=== PATIENT | female | born 1935 | race Caucasian/White ===

== ENCOUNTER 2025-07-19 11:06 | Inpatient (IN) | payer MEDICARE, OTHER, SELFPAY ==
[2025-07-19] VITALS (7 sets, daily range): BP systolic 139–155; BP diastolic 76–95; PULSE 77–86; RESP 1–18; TEMP 36.3–37.4; O2SAT 91–96; BMI 23.2
--- NOTE | ~2025-07-19 | CT_ITS ---
CTA CHEST CLINICAL HISTORY: covid, cough, sob . COMPARISON: Chest x-ray today TECHNIQUE: Helical CTA performed from thoracic inlet to upper abdomen IV contrast information not listed in PACS Coronal, sagittal reformats. Multiplanar MIPS CT images acquired with automatic exposure control for dose reduction DLP: 237 mGy-cm FINDINGS: Pulmonary arteries: No PE. Thoracic Aorta: No dissection or aneurysm. Atherosclerotic disease. Heart/pericardium: Cardiomegaly. Coronary artery calcifications. RV/LV ratio: Normal. Lungs/Pleura: Bilateral dependent changes. Tiny loculated effusion left side. Tracheobronchial tree: Patent. Nodes: No enlarged nodes. Bones: No acute bony abnormality. Soft tissues: Unremarkable. Visualized upper abdomen: Cholecystectomy. IMPRESSION: 1. No PE. 2. Tiny thin loculated pleural effusion left side. Reviewed, dictated and finalized at location R. AURANT FLOOR MANAGER
--- NOTE | ~2025-07-19 | XR_ITS ---
Examination: XR chest 2V Clinical History: cough, URI Comparison: None Technique: PA and Lateral Findings: Heart size mildly enlarged. Hyperinflation. Left basilar atelectasis and/or scarring. A few calcified granulomata. No acute bony abnormality. Osteopenia. IMPRESSION: 1. Left basilar atelectasis and/or scarring. Pneumonitis not excluded. Reviewed, dictated and finalized at location R. INE CEMENTER
--- NOTE | 2025-07-19 11:31 | ECG_ITS ---
Test Date: 2025-07-19 12:13:19 Measurements Intervals [place] Rate: 90 P: 56 VA: 211 QRS: 42 QRSD: 87 T: 65 QT: 355 QTc: 435 Interpretive Statements SINUS RHYTHM WITH FIRST DEGREE AV BLOCK POSSIBLE LEFT ATRIAL ENLARGEMENT BASELINE ARTIFACT- I, II, III, AVR, AVL, AVF, V1 BORDERLINE ECG No previous ECG available for comparison Electronically Signed On 07-19-2025 12:58:56 PERENNIAL HOUSE MANAGER by Denis Fulton D.O.
[2025-07-19 11:59] LABS: Hematocrit 40.7 % (37.0-47.0); Hemoglobin 13.5 g/dL (12.0-15.0); Immature Granulocyte Percent A 0.3 % (0-0.5); Lymphocytes Absolute Auto 1.11 K/mm3 (0.9-3.2); Mean Corpuscular HGB Conc 33.2 g/dl (32-36); Mean Corpuscular Hemoglobin 29.6 pg (26-34); Mean Corpuscular Volume 89.3 fl (80-100); Nucleated Red Blood Cells Absolute Auto 0.000 K/mm3 (0.0-0.012); Nucleated Red Blood Cells Perc 0.0 % (0.0-0.2); Platelet Count Result 279 k/mm3 (150-375); Red Blood Count 4.56 M/mm3 (4.2-5.4); White Blood Count 9.2 K/mm3 (4.5-10.0)
[2025-07-19 12:11] LABS: Alanine Aminotransferase 32 U/L (6-35); Albumin Level 4.1 g/dL (3.5-5.1); Alkaline Phosphatase 129 U/L (38-126); Anion Gap 7 mmol/L (4-12); Aspartate Amino Transferase 40 U/L (14-36); Bilirubin,Total 0.7 mg/dL (0.2-1.3); Blood Urea Nitrogen 16 mg/dL (7-17); Calcium 9.9 mg/dL (8.4-10.2); Carbon Dioxide 24 mmol/L (22-30); Chloride 106 mmol/L (98-107); Estimated CRCL calculation 36 ml/min; Estimated Glomerular Filt Rate > 60; Glucose 107 mg/dL (65-110); Potassium 4.1 mmol/L (3.4-5.0); Sodium 137 mmol/L (137-145); Total Protein 7.8 g/dL (6.3-8.2)
[2025-07-19 12:12] LABS: Influenza A QL RT-PCR Negative (Negative); Influenza B QL RT-PCR Negative (Negative); RSV RNA, RT-PCR Negative (Negative); SARS-CoV-2 RNA PCR Positive (Negative)
[2025-07-19 12:15] LABS: INR 1.0; Prothrombin Time 13.5 Seconds (11.1-14.7)
[2025-07-19 12:16] LABS: Partial Thromboplastin Time 27.4 Seconds (22.3-36.8)
--- NOTE | 2025-07-19 12:20 | ED.URI ---
HPI - URI/Sore Throat General Chief Complaint: Upper Respiratory Infection <SHERLY Pack Last Filed: 07/19/25 15:05> Stated Complaint: URI symptoms x 3 days <SHERLY Pack Last Filed: 07/19/25 15:05> Time Seen by Provider: 07/19/25 11:31 <SHERLY Pack Last Filed: 07/19/25 15:05> Source: patient <SHERLY Pack Last Filed: 07/19/25 15:05> Mode of arrival: EMS <SHERLY Pack Last Filed: 07/19/25 15:05> Limitations: no limitations <SHERLY Pack Last Filed: 07/19/25 15:05> History of Present Illness HPI Narrative: Patient is a 9-year-old female, past medical history of HLD, HTN, who presents the ED via EMS with report of cough/URI symptoms. Patient is resident of [facility] living [facility]. at bedside assisted in providing information. Reports patient has had a dry cough for the past 3-4 days. Has been worsening. Denies production of sputum. Denies congestion/sore throat, fevers, CP, significant SOB. <SHERLY Pack Last Filed: 07/19/25 15:05> Related Data Home Medications: Home Medications ?Medication ?Instructions ?Recorded ?Confirmed ?Last Taken ?Type amlodipine 5 mg-benazepril 20 mg 1 cap PO DAILY 07/19/25 07/19/25 07/18/25 History capsule atorvastatin 20 mg tablet 20 mg PO QPM 07/19/25 07/19/25 07/17/25 History <SHERLY Pack Last Filed: 07/19/25 15:05> Allergies/Adverse Reactions: Allergies Allergy/AdvReac Type Severity Reaction Status Date / Time Penicillins Allergy Unknown Unknown Verified 07/19/25 16:39 <SHERLY Pack Last Filed: 07/19/25 15:05> Review of Systems Review of Systems: All systems reviewed & are unremarkable except as noted in HPI. <Klaudia Brown PA-C - Last Filed: 07/19/25 15:05> All systems reviewed & are unremarkable except as noted in HPI and below <Klaudia Brown PA-C - Last Filed: 07/19/25 15:05> [facility] Past Medical History Medical History: Medical History (Updated 07/19/25 @ 18:07 by Suzan Arcos APRN) Hypertension Hyperlipidemia <Klaudia Brown PA-C - Last Filed: 07/19/25 15:05> Social History Social History: Social History Smoking status: Never smoker Alcohol intake: never Substance use: never Substance use type: does not use Lack of Transportation: No Lack of Food: Never True Current Housing: I Have Housing Concerned About Future Housing: No Difficulty Paying Gas/Electric Bills: No Difficulty Paying for Meds: No Currently Unemployed: No Education: Associate Degree Difficulty w/ Childcare or Family Care: No Spiritual care concerns: No <Klaudia Brown PA-C - Last Filed: 07/19/25 15:05> Exam Narrative: GENERAL: Elderly, frail, mildly ill appearing, non-toxic, in no acute distress. HEAD: Normocephalic, atraumatic. ENT: Dry MMs RESPIRATORY: Airway patent, respirations nonlabored. Frequent coughing on exam. Slight rhonchi in bases [place]. No wheezing. No significant distress. CARDIOVASCULAR: Regular rate and rhythm without murmurs, rubs, or gallops. Peripheral pulses intact MUSCULOSKELETAL: Moves all extremities. No gross deformities. No peripheral edema. SKIN: Warm, dry, normal color. NEURO: A&O X3. Speech clear. Cranial nerves II-XII grossly intact. Steady gait. No ataxic movements. PSYCHIATRIC: Appropriate mood and affect. Normal interaction. <Klaudia Brown PA-C - Last Filed: 07/19/25 15:05> Course QUEEN'S COUNSEL/PA Physician Supervision This visit was performed by both a physician and an Advanced Practice Provider. I performed all aspects of the Medical Decision Making as documented. <DO Farhana Rodriguez Filed: 07/19/25 21:16> Vital Signs Vital signs: Vital Signs Temperature 98.4 F 07/19/25 11:05 Pulse Rate 86 07/19/25 11:05 Respiratory Rate 15 07/19/25 11:05 Blood Pressure 139/95 H 07/19/25 11:05 Pulse Oximetry 94 07/19/25 11:05 Oxygen Delivery Room Air 07/19/25 11:05 Temperature 99.4 F 07/19/25 19:44 Pulse Rate 84 07/19/25 19:44 Respiratory Rate 18 07/19/25 19:44 Blood Pressure 139/76 07/19/25 19:44 Pulse Oximetry 91 07/19/25 19:44 Oxygen Delivery Room Air 07/19/25 16:51 <Klaudia Brown PA-C - Last Filed: 07/19/25 15:05> Vital Signs Temperature 98.4 F 07/19/25 11:05 Pulse Rate 86 07/19/25 11:05 Respiratory Rate 15 07/19/25 11:05 Blood Pressure 139/95 H 07/19/25 11:05 Pulse Oximetry 94 07/19/25 11:05 Oxygen Delivery Room Air 07/19/25 11:05 Temperature 99.4 F 07/19/25 19:44 Pulse Rate 84 07/19/25 19:44 Respiratory Rate 18 07/19/25 19:44 Blood Pressure 139/76 07/19/25 19:44 Pulse Oximetry 91 07/19/25 19:44 Oxygen Delivery Room Air 07/19/25 16:51 <Lencho Campos DO - Last Filed: 07/19/25 21:16> [facility] MDM Narrative Medical decision making narrative: Patient presented to ED with several day history of cough/URI symptoms. From local assisted living facility. Vital signs are stable upon arrival. Patient is afebrile here. Oxygen around 94% on RA. Cbc without leukocytosis or anemia. CMP is unremarkable. Stable electrolytes. Lactic acid within normal range. Patient tested positive for COVID-19. Consistent with clinical picture. EKG without concerning ischemic changes. Chest x-ray with left lower lobe atelectasis versus scarring, possible pneumonitis. CTA of chest was obtained and w/o evidence of PE, does show tiny loculated pleural effusion. Patient was ambulated throughout the ED and oxygen dropped to upper 70s - 84% on RA. Patient does not have any previous oxygen requirement. She does not require oxygen while at rest, but will admit for further evaluation of supportive therapy for COVID given acute hypoxia. Discussed case with Suzan LLANOS hospitalist, accepted patient for admission. Hospitalist to make determination for steroid treatment. Patient and family are in agreement with plan and need for admission. <Klaudia Brown PA-C - Last Filed: 07/19/25 15:05> Differential Diagnosis Differential Diagnosis: covid, influenza, viral syndrome, URI, PNA, electrolyte derangement <SHERLY Pack Last Filed: 07/19/25 15:05> Medical Records I have reviewed the following patient records and this information was taken into consideration when formulating the assessment and plan.: previous labs, previous ER visits, previous hospitalizations and previous clinic visits <SHERLY Pack Last Filed: 07/19/25 15:05> Lab Data MDM Lab Attestation statement: I personally reviewed the patient's lab results. <Klaudia Brown PA-C - Last Filed: 07/19/25 15:05> Result diagrams: 07/19/25 11:54 07/19/25 11:54 <Klaudia Brown PA-C - Last Filed: 07/19/25 15:05> Labs: Lab Results 07/19/25 07/19/25 Range/Units 11:24 11:54 WBC 9.2 (4.5-10.0) K/mm3 RBC 4.56 (4.2-5.4) M/mm3 Hgb 13.5 (12.0-15.0) g/dL Hct 40.7 (37.0-47.0) % MCV 89.3 (80-100) fl MCH 29.6 (26-34) pg MCHC 33.2 (32-36) g/dl RDW 13.3 (11.5-14.5) % Plt Count 279 (150-375) k/mm3 MPV 8.8 (7.4-10.4) fl Immature Gran % (Auto) 0.3 (0-0.5) % Neut % (Auto) 76.6 H (45.5-73.1) % Lymph % (Auto) 12.1 L (18.3-44.2) % Sac % (Auto) 10.1 H (2.6-8.5) % Eos % (Auto) 0.5 (0-4.4) % Baso % (Auto) 0.4 (0.2-1.2) % Lymph # (Auto) 1.11 (0.9-3.2) K/mm3 Sac # (Auto) 0.9 H (0.1-0.6) K/mm3 Eos # (Auto) 0.1 (0-0.3) K/mm3 Baso # (Auto) 0.0 (0.0-0.1) K/mm3 Abs Immat Gran (auto) 0.03 (0.00-0.031) K/mm3 Absolute Neuts (auto) 7.0 H (1.3-6.7) K/mm3 Absolute Nucleated RBC 0.000 (0.0-0.012) K/mm3 Nucleated RBC % 0.0 (0.0-0.2) % PT 13.5 (11.1-14.7) Seconds INR 1.0 APTT 27.4 (22.3-36.8) Seconds Sodium 137 (137-145) mmol/L Potassium 4.1 (3.4-5.0) mmol/L Chloride 106 (98-107) mmol/L Carbon Dioxide 24 (22-30) mmol/L Anion Gap 7 (4-12) mmol/L BUN 16 (7-17) mg/dL Creatinine 0.75 (0.7-1.0) mg/dL Estim Creat Clear Calc 36 ml/min Estimated GFR > 60 (59 - ) Glucose 107 (65-110) mg/dL Lactic Acid 1.0 (0.7-2.0) mmol/L Calcium 9.9 (8.4-10.2) mg/dL Total Bilirubin 0.7 (0.2-1.3) mg/dL AST 40 H (14-36) U/L ALT 32 (6-35) U/L Alkaline Phosphatase 129 H (38-126) U/L Total Protein 7.8 (6.3-8.2) g/dL Albumin 4.1 (3.5-5.1) g/dL Influenza A (RT-PCR) Negative (Negative) Influenza B (RT-PCR) Negative (Negative) RSV (RT-PCR) Negative (Negative) SARS-CoV-2 RNA (RT-PCR) Positive A (Negative) <Klaudia Brown PA-C - Last Filed: 07/19/25 15:05> Lab Results 07/19/25 07/19/25 Range/Units 11:24 11:54 WBC 9.2 (4.5-10.0) K/mm3 RBC 4.56 (4.2-5.4) M/mm3 Hgb 13.5 (12.0-15.0) g/dL Hct 40.7 (37.0-47.0) % MCV 89.3 (80-100) fl MCH 29.6 (26-34) pg MCHC 33.2 (32-36) g/dl RDW 13.3 (11.5-14.5) % Plt Count 279 (150-375) k/mm3 MPV 8.8 (7.4-10.4) fl Immature Gran % (Auto) 0.3 (0-0.5) % Neut % (Auto) 76.6 H (45.5-73.1) % Lymph % (Auto) 12.1 L (18.3-44.2) % Sac % (Auto) 10.1 H (2.6-8.5) % Eos % (Auto) 0.5 (0-4.4) % Baso % (Auto) 0.4 (0.2-1.2) % Lymph # (Auto) 1.11 (0.9-3.2) K/mm3 Sac # (Auto) 0.9 H (0.1-0.6) K/mm3 Eos # (Auto) 0.1 (0-0.3) K/mm3 Baso # (Auto) 0.0 (0.0-0.1) K/mm3 Abs Immat Gran (auto) 0.03 (0.00-0.031) K/mm3 Absolute Neuts (auto) 7.0 H (1.3-6.7) K/mm3 Absolute Nucleated RBC 0.000 (0.0-0.012) K/mm3 Nucleated RBC % 0.0 (0.0-0.2) % PT 13.5 (11.1-14.7) Seconds INR 1.0 APTT 27.4 (22.3-36.8) Seconds Sodium 137 (137-145) mmol/L Potassium 4.1 (3.4-5.0) mmol/L Chloride 106 (98-107) mmol/L Carbon Dioxide 24 (22-30) mmol/L Anion Gap 7 (4-12) mmol/L BUN 16 (7-17) mg/dL Creatinine 0.75 (0.7-1.0) mg/dL Estim Creat Clear Calc 36 ml/min Estimated GFR > 60 (59 - ) Glucose 107 (65-110) mg/dL Lactic Acid 1.0 (0.7-2.0) mmol/L Calcium 9.9 (8.4-10.2) mg/dL Total Bilirubin 0.7 (0.2-1.3) mg/dL AST 40 H (14-36) U/L ALT 32 (6-35) U/L Alkaline Phosphatase 129 H (38-126) U/L Total Protein 7.8 (6.3-8.2) g/dL Albumin 4.1 (3.5-5.1) g/dL Influenza A (RT-PCR) Negative (Negative) Influenza B (RT-PCR) Negative (Negative) RSV (RT-PCR) Negative (Negative) SARS-CoV-2 RNA (RT-PCR) Positive A (Negative) <Lencho Campos DO - Last Filed: 07/19/25 21:16> Imaging Data Attestation: I personally reviewed and interpreted this imaging study as follows: <Klaudia Brown PA-C - Last Filed: 07/19/25 15:05> Radiologist's impression: ITS Impressions Chest X-Ray 07/19/25 12:38 IMPRESSION: 1. Left basilar atelectasis and/or scarring. Pneumonitis not excluded. Chest CTA 07/19/25 13:06 IMPRESSION: 1. No PE. 2. Tiny thin loculated pleural effusion left side. <Klaudia Brown PA-C - Last Filed: 07/19/25 15:05> ITS Impressions Chest X-Ray 07/19/25 12:38 IMPRESSION: 1. Left basilar atelectasis and/or scarring. Pneumonitis not excluded. Chest CTA 07/19/25 13:06 IMPRESSION: 1. No PE. 2. Tiny thin loculated pleural effusion left side. <Lencho Campos DO - Last Filed: 07/19/25 21:16> ECG Data EKG #1: Attestation: I personally reviewed and interpreted this ECG as follows: <Klaudia Brown PA-C - Last Filed: 07/19/25 15:05> ECG completion date: 07/19/25 <Klaudia Brown PA-C - Last Filed: 07/19/25 15:05> ECG completion time: 12:13 <SHERLY Pack Last Filed: 07/19/25 15:05> normal rate (90), sinus rhythm (first degree av block) and no ST changes <Klaudia Brown PA-C - Last Filed: 07/19/25 15:05> Discharge Plan Discharge Clinical Impression: COVID-19, Acute hypoxic respiratory failure <SHERLY Pack Last Filed: 07/19/25 15:05> Patient Disposition: Still a Patient <SHERLY Pack Last Filed: 07/19/25 15:05> Condition: Stable <SHERLY Pack Last Filed: 07/19/25 15:05>
--- OUTSIDE RECORDS SUMMARY | 2025-07-19 12:43 | XMS_ITS | Clinical Summary ---
Author Organization [facility] Address [address] [place] [address] Care Team Providers Care Micro Computer Data Processor Name Role Phone Aston Walker MD Primary Care Provider Allergies Active Allergy Reactions Criticality Noted Date Comments Penicillins Hypotension,Rash,Deanna phylaxis,Anxiety,O ther (See Comments),Palpitations,Shortness of Breath/Wheezing High 02/09/1985 Medications multivitamin (DAILY-JD) tablet Take 1 Tab by mouth every other day. Active atorvastatin (LIPITOR) 20 mg tabletIndication s:Stage 3a chronic kidney disease (CMS/HCC),Essent ial hypertension, benign,History of CVA (cerebrovascular accident),Mixed hyperlipidemia TAKE 1 TABLET BY MOUTH EVERY DAY 100 Tablet 3 025 Active acetaminophen (TYLENOL) 325 mg tablet Take 2 Tablets (650 mg) by mouth every 6 hours as needed for Other (See Comment) (See admin instructions). 025 Active amLODIPine-benaz epril (LOTREL) 5-20 mg capsuleIndicatio ns:Stage 3a chronic kidney disease (CMS/HCC),Essent ial hypertension, benign,History of CVA (cerebrovascular accident),Mixed hyperlipidemia TAKE 1 CAPSULE BY MOUTH EVERY DAY 100 Capsule 3 025 Active aspirin (ECOTRIN EC) 81 mg Tablet, Delayed Release (E.C.) Take 81 mg by mouth daily. 06/21 Discontinued colchicine (COLCRYS) 0.6 mg tabletIndication s:Chondrocalcino sis Take 2 tablets (1.2mg) for one day, then continue with 0.6mg daily 15 Tablet 023 06/21 Discontinued Saccharomyces boulardii (FLORASTOR) 250 mg Capsule Take 1 Capsule (250 mg) by mouth 2 times daily. 60 Capsule 5 12/02/19 25 1:59 PM CDT 025 06/21 Discontinued polyethylene glycol 3350 (MIRALAX) 17 gram/dose Powder Starting 12/02: Dissolve 1 capful (17 Grams) in 8 ounces of fluid and drink by mouth once daily. 510 Gram 5 12/02/19 25 1:59 PM CDT 025 06/21 Discontinued hydrocortisone acetate (ANUSOL-HC) 25 mg Suppository Insert 1 Suppository (25 mg) by rectum every 12 hours. 60 Suppository 5 12/02/19 25 1:59 PM CDT 025 06/21 Discontinued docusate sodium (COLACE) 100 mg capsule Take 1 Capsule (100 mg) by mouth 2 times daily as needed for Constipation. 60 Capsule 5 12/02/19 25 1:59 PM CDT 025 06/21 Discontinued conjugated estrogens (PREMARIN) 0.625 mg/gram vaginal cream Starting on 12/02: Insert 1 Gram vaginally every Saturday, Saturday, and Saturday. 30 Gram 5 12/02/19 25 1:59 PM CDT 025 06/21 Discontinued nitrofurantoin (Macrobid) 100 mg capsuleIndicatio ns:UTI symptoms Take 1 Capsule (100 mg) by mouth 2 times daily. 10 Capsule 025 06/21 Discontinued respiratory syncytial virus, pref A and B, PF, (Abrysvo, PF,) 120 mcg/0.5 mL Recon SolnIndications: Need for RSV immunization Inject 0.5 mL (120 mcg) by intramuscular injection one time only for 1 dose. 0.5 mL 025 06/21 Active Problems Patient Care Coordination No te Formatting of this note migh t be different from the original. Dress Designer--Dr. Neetu Castrejon Problem Noted Date Diagnosed Date Prediabetes 12/07/2024 Protein-calorie malnutrition, severe 11/29/2024 Rectal prolapse 11/28/2024 Blood per rectum 11/27/2024 Dementia 11/17/2024 Stage 3a chronic kidney disease 08/04/2020 Allergic rhinitis due to pollen 11/15/2015 GERD (gastroesophageal reflux disease) 2 MVP (mitral valve prolapse) 11/01/2009 Essential hypertension, benign 01/28/2007 History of CVA (cerebrovascular accident) 2006 Resolved Problems Problem Noted Date Diagnosed Date Resolved Date Pruritus 12/10/2017 11/28/2024 Cough 06/07/2017 08/04/2020 Urinary frequency 02/12/2017 11/28/2024 Vertigo 09/26/2016 08/04/2020 Right knee pain 03/12/2014 11/28/2024 Varicose vein 03/12/2014 11/28/2024 Knee injury 09/11/2013 11/28/2024 Change in bowel function 04/16/201309/2024 Abnormal glucose 09/21/2011 11/28/2024 Foot pain 09/15/2010 11/28/2024 Breast pain 09/13/2009 11/28/2024 Insomnia 09/13/2009 08/04/2020 Rib pain 07/26/2009 11/28/2024 [facility]ine [facility] 03/15/2009 08/04/2020 Sprain and strain of other s pecified sites of knee and leg 01/28/2007 07/14/2008 Routine general medical exam ination at a health care facility 01/28/2007 07/14/2008 Encounters Date Type Department Care Team Description 06/21/2025 11:00 AM EXPERIMENTAL WELDER Office Visit [facility] - [address] [place] [id number] Aston Walker MD Stage 3a chronic kidney disease (CMS/HCC) (Primary Dx); Frail elderly; History of CVA (cerebrovascular accident); Moderate late onset Alzheimer's dementia without behavioral disturbance, psychotic disturbance, mood disturbance, or anxiety (CMS/HCC); Mixed hyperlipidemia; Prediabetes; Need for RSV immunization 06/15/2025 External Device Data STL ABSTRACTION Provider, Abstract 06/11/2025 [facility] [address] [place] [phone] Aston Walker MD Labs Only 05/28/2025 [facility] [address] [place] [address] Aston Walker MD needs letter 05/13/2025 [facility] [address] [place] [address] Aston Walker MD Labs Only 04/22/2025 [facility] [address] [place] [address] Aston Walker MD Paperwork 04/20/2025 External Device Data STL ABSTRACTION Provider, Abstract 04/20/2025 [facility] [address] [place] [phone] Aston Walker MD Paperwork 04/19/2025 [facility] [address] [facility] [address] [place] [address] Aston Walker MD Provider Call from Last 3 Months Immunizations Immunization Administration Dates Next Due (Moderna Bivalent)(6 Mos Up) COVID-19 Vaccine - Emergency Use Authorization, MRNA(Pf) 50 Mcg/0.5 Ml Im Susp 05/17/2025 (PFIZER KAREN)(12 YR UP PRIMA RY SERIES) COVID-19 VACCINE - EMERGENCY USE AUTHORIZATION, MRNA, KAREN(PF) 30 MCG/0.3 ML IM SUSP 02/16/2022 (PFIZER)(12 YR UP) COVID-19 VACCINE - EMERGENCY USE AUTHORIZATION, MRNA, [id number](PF) 30 MCG/0.3 ML IM SUSP 05/05/2021,10/06/2020,09/14/2020 (PNEUMOVAX 23)(50 YRS UP) PN EUMOCOCCAL POLYSACCHARIDE (PPV23) 0.5 ML, IM 07/29/2004 (PREVNAR 20)(6 WKS UP) PNEUM OCOCCAL CONJUGATE VACCINE 20-VALENT (PCV20), POLYSACCHARIDE [id number] CONJUGATE, ADJUVANT 0.5 ML (PF) IM 04/23/2022 (Pfizer Bivalent)(12 Yr Up) COVID-19 Vaccine - Emergency Use Authorization, MRNA, Lnp-S(Pf) 30 Mcg/0.3 Ml Susp 05/11/2022 INFLUENZA VACCINE HIGH DOSE QUADRIVALENT 65 YR UP PF IM 05/17/2025,04/18/2023,04/23/2022,05/09,04/01/2020 INFLUENZA VACCINE QUADRIVALE NT ADJ 65 YR UP PF IM 05/09/2021 Influenza Seasonal Unspecifi ed Formulation IM 03/29/2023,05/21/2018 Influenza Vaccine High Dose 65+ Yrs IM 9,05/21/2018 Pneumococcal Polysaccharide Vacc 23-odell IM SCHIP 03/23/2004 Zoster Vaccine Live SQ 02/18/2015 Family History Medical History Relation Name Comments Healthy Father Raundle Heart Attack Father Raundle Healthy Mother Charlotte Relation Name Status Comments Father Raundle Mother Charlotte Alive Social History Tobacco Use Types Packs/Day Years Used Date Smoking Tobacco: Never Smokeless Tobacco: Never Tobacco Cessation:Counseling Given: No Alcohol Use Standard Drinks/Week Comments No 0 (1 standard drink = 0.6 oz pur e alcohol) Social Connections Answer Date Recorded In a typical week, how many times do you talk on the phone with family, friends, or neighbors? More than three times a week 08/04/2020 How often do you get togethe r with friends or relatives? Once a week 08/04/2020 How often do you attend chur PinMyPet or uatsdin services? More than 4 times per year 08/04/2020 Do you belong to any clubs o r organizations such as evangelical groups, unions, fraternal or athletic groups, or school groups? No 08/04/2020 How often do you attend meet ings of the clubs or organizations you belong to? Never 08/04/2020 Are you , , di vorced, , never , or living with a partner? 08/04/2020 Financial Resource Strain Answer Date R ecorded How hard is it for you to pa y for the very basics like food, housing, medical care, and heating? Not hard at all 10/19/2021 Food Insecurity Answer Date Recorded In the past 12 months, have you worried that your food would run out before you had money to buy more? Never true 10/19/2021 In the past 12 months, did y ou run out of food and didn't have money to buy more? Never true 10/19/2021 Transportation Needs Answer Date Record ed In the past 12 months, has l ack of transportation kept you from medical appointments or from getting medications? No 10/19/2021 Lack of Transportation (Non-Medical) Not on file 10/19/2021 Feeling Safe Answer Date Recorded Are you in a relationship wi th someone who hurts you emotionally and/or physically? No 01/01/2025 Food Insecurity Answer Date Recorded Patient needs follow up regardin 11/28/2024 Transportation Needs Answer Date Record ed Patient needs follow up regardin 11/28/2024 Utility Needs Answer Date Recorded Patient needs follow up regardin 11/28/2024 Comments No Sex and Gender Information Value Date Recorded Sex Assigned at Not on file Legal Sex Female 4:57 AM EXPERIMENTAL WELDER Gender Identity Not on file Sexual Orientation Not on file Last Filed Vital Signs Vital Sign Reading Time Taken Comments Blood Pressure 120/86 06/21/2025 10:31 AM EXPERIMENTAL WELDER Pulse 70 06/21/2025 10:31 AM EXPERIMENTAL WELDER Temperature 36.5 C (97.7 F) 06/21/2025 10:31 AM EXPERIMENTAL WELDER Respiratory Rate 16 06/21/2025 10:3 1 AM EXPERIMENTAL WELDER Oxygen Saturation 95% 06/21/2025 10: 31 AM EXPERIMENTAL WELDER Inhaled Oxygen Concentration - - Weight 58.4 kg (128 lb 12.8 oz) 025 10:31 AM EXPERIMENTAL WELDER Height 157.5 cm (5' 2) 06/21/2025 10:3 1 AM EXPERIMENTAL WELDER Body Mass Index 23.56 06/21/2025 10:31 AM EXPERIMENTAL WELDER Plan of Treatment Upcoming Encounters Date Type Department Care Team (Late st Contact Info) Description 12/09/2025 2:30 PM CDT Office Visit [facility] - [address] [place] [phone] Aston Walker MD [address] [place] [address] 05/27/2088 Abstract [facility] - [facility] [address] [place] [address] Josr Velazquez MD [address] [facility] [address] [address] Health Maintenance Due Date Last Done Comments DTAP/TDAP/TD VACCINES (1 - Tdap) 1954 OSTEOPOROSIS SCREENING 07/14/2008 3 (Previously completed) RSV VACCINE (60+ or ) (1 - 1-dose 75+ series) 2012 ZOSTER VACCINE (2 of 3) 04/15/2015 02/18/2015 COVID-19 Vaccine (2024-2 6 season) 2025 05/17/2025, 04/18/2023, 05/11/2022, Additional history exists PNEUMOCOCCAL VACCINE 50+ YEARS Completed 0 04/23/2022, 07/29/2004, 03/23/2004 INFLUENZA VACCINE Completed 05/17/2025, , 03/29/2023, Additional history exists Additional Health Concerns Infection Onset Date 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 12/07/2022 Insurance MEDICARE PART A AND B [facility] [place] [address] RX [employer] Medicare Part D RX [employer] (INTERNAL) [facility] Advance Directives For more information, please contact: [phone] Documents on File Type Date Recorded 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 intubation): No Mechanical Ventilation (for respiratory distress) - Non-Invasive (i.e. BiPAP, CPAP): Yes * NO CPR (In Event of Cardiopulmonary Arrest) Date Activated Date Inactivated Comments 12/07/2024 11:41 AM 01/01/2025 5:40 PM Question Answer Comments Mechanical Ventilation (for respiratory distress) - Invasive (i.e. intubation): No Mechanical Ventilation (for respiratory distress) - Non-Invasive (i.e. BiPAP, CPAP): Yes * Full Code Date Activated Date Inactivated Comments 11/27/2024 9:36 PM 12/02/2024 7:18 PM * Full Code Date Activated Date Inactivated Comments 01/15/2024 3:27 PM 11/27/2024 3:01 PM Care Teams Micro Computer Data Processor Relationship Specialty Start Date End Date Aston Walker MD [address] [place] [address]. [address] [place] [address] PCP - General Internal Medicine 04/01/20
--- OUTSIDE RECORDS SUMMARY | 2025-07-19 12:43 | XMS_ITS | Encounter Summary ---
Author Organization [facility] Address [address] [place] [address] Care Team Providers Care Inspector Production Plastic Parts Name Role Phone Aston Walker MD Primary Care Provider Encounter Details Date Type Department Care Team (Late st Contact Info) Description 01/28/2007 Orders Only [facility] Primary Care - [address] [place] [address] Josr Velazquez MD [address] [facility] [address] [address] Social History Tobacco Use Types Packs/Day Years Used Date Smoking Tobacco: Never Assessed Comments Unknown Sex and Gender Information Value Date Recorded Sex Assigned at Not on file Legal Sex 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 TOBACCO USE Patient does not currently use tobacco. MEDICATIONS: Medication list current. pt also taking calcium and a multi vitamin CHIEF COMPLAINT Seen as a new patient to get established with the practice. Seen for a preventive examination. pt seeing dr graves for left leg 4 wks ago HISTORY: Mrs. Ordonez comes in as a new patient today. She is a healthy 71 year- old white female whocomes in for establishment. She has been having some left pain. She has been seeing her friend Dr. 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 In the office today she is hobbling on crutches and having greatamounts of difficulty just bearing weight on the left leg without significant pain. She denies any acute trauma. Dr. Graves recommended she use Celebrex but she read the potential side effects and decided not to fill the prescription. Otherwise her history is remarkable for occasional migraines. She does have some swelling of the foot on the site of her left knee pain and I described to her that is probably just dependant edema. ROS: no other GI, symptoms PAST MEDICAL HISTORY: Hypertension. Migraines. 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 She still describes some left sided sensory deficits. Past surgical history: Hysterectomy, bunionectomy, cholecystectomy, pelvic floor surgery for bladder incontinence. FAMILY HISTORY: noncontributory SOCIAL HISTORY: The patient lives with her . She remains physically active and does a lot ofgymnastics. She is a Non-smoker, non-drinker. She wears her seatbelt regularly. PHYSICAL EXAMINATION: This is a pleasant, healthy appearing 71 year-old white female in no acute distress. She is having quite a bit of difficulty with pain in the left knee and there is mild swelling and fullness and fullness in the popliteal fossae. There are good peripheral pulses. CONSTITUTIONAL: GENERAL APPEARANCE: Healthy appearing patient in no distress. NECK/THYROID: Trachea midline. No thyroid enlargement, tenderness, or mass. No supraclavicular or cervical adenopathy. RESPIRATORY: Clear to auscultation and percussion. Normal respiratory effort. CARDIOVASCULAR: CARDIAC: Regular rhythm. No murmurs, rubs, or gallops. ARTERIAL: No aortic bruits. EDEMA/VARICOSITIES OF EXTREMITIES: No edema or varicosities. GASTROINTESTINAL: ABDOMEN: Soft, non-tender, without masses. Bowel sounds active. LIVER/SPLEEN/KIDNEY: No hepatosplenomegaly, tenderness or nodularity. Kidneys not palpable. 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 Ordonez to take the celebrex. I think it is a safe and worthwhile choice thing to try to improve her pain. If she does not have a good response she needs to f/u with ortho and consider surgery. 401.1-HYPERTENSION ESSENTIAL BENIGN ASSESSMENT: The patient will continue on her same medications. We will adjust prn. 434.91-CVA/STROKE ASSESSMENT: She has made a pretty full recovery although she still complains of having sensory deficit on the left side of her body. She doesn't have any obvious neurological deficits.The patient will call for problems but return at least every 6 months. Will check screening labs today. I encouraged her to continue working on the orthopedic problem as she definitely needs some resolution on that. V70.0-ROUTINE GENERAL MEDICAL EXAMINATION ASSESSMENT: The patient is doing well and no distinct problems were identified on exam. LAB ORDERS: Order number: [id number] Test Ordered: CBC W/ DIFFERENTIAL 3150 Order number: [id number] Test Ordered: COMPREHENSIVE METABOLIC PANEL & GFR 1112 Order number: [id number] Test Ordered: LIPID PANEL 1078 Order number: [id number] Test Ordered: TSH 1720 Order number: [id number] Test Ordered: URINALYSIS WITH REFLEX CULTURE 2221 Order number: [id number] Test Ordered: EKG W/ INTERPRETATION AND REPORT [id number] HEALTH MAINTENANCE: LAST BREAST EXAM DATE: 2005. LAST PAP DATE: 2005. PAP SMEAR PROVIDER: dieudonne. PAP SMEAR PROVIDER: dieudonne. ( pt had a hist in 1984) LAST DATE PELVIC EXAM: 2005. LAST MAMMOGRAM DATE: 01-31. LAST DATE HORMONE REPLACE DISCUSSED: neg. DISCUSSED SMOKING: neg. LAST TD: neg SEXUAL ACTIVITY DISCUSSED: pos. SUBSTANCE ABUSE DISCUSSED: neg. INJURY PREVENTION DISCUSSED: pos. DIET AND EXERCISE DISCUSSED: pos. ADVANCED DIRECTIVES DISCUSSED: neg. LAST DATE COLONOSCOPY: 2000. LAST DATE FOBT: neg. LAST BONE DENSITY DATE: 2002?. DIABETIC EYE EXAM: na. DIABETIC FOOT EXAM: na LAST FLU VACCINE:neg LAST PNEUMOCOCCAL:2004 PREVENTIVE COUNSELING The patient was counseled regarding screening procedures and recommended schedule for mammography, GI hemoccult testing, colonoscopy, cholesterol, thyroid and diabetes screening. RETURN VISIT : Patient instructed to return in 6 months.sooner if needed Electronically Signed by: Josr Velazquez MD on Sunday, February 04, 2007 documented in this encounter Plan of Treatment Upcoming Encounters Date Type Department Care Team (Late st Contact Info) Description 12/09/2025 2:30 PM CDT Office Visit [facility] [address] [facility] [address] [place] [address] Aston Walker MD 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 [place] [address] PCP - General Internal Medicine 04/01/20 documented as of this encounter
--- OUTSIDE RECORDS SUMMARY | 2025-07-19 12:43 | XMS_ITS | Encounter Summary ---
Author Organization [facility] Address [address] [place] [address] Care Team Providers Care Product Managent Intern Name Role Phone Aston Walker MD Primary Care Provider Reason for Visit * Reason Comments needs letter Encounter Details Date Type Department Care Team (Late st Contact Info) Description 05/28/[address] [facility] Primary Care - [address] [place] [address] Aston Walker MD [address] [place] [address]. [address] [place] [address] needs letter Social History Tobacco Use Types Packs/Day Years Used Date Smoking Tobacco: Never Smokeless Tobacco: Never Alcohol Use Standard Drinks/Week Comments No 0 [...] week 08/04/2020 [facility] services? 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 Topic: CPA Information Request - Billing >> May 28, 2025 10:39 AM Trish Trivedi wrote: Caller Name: Bennett on PHI Callback Number: Telephone Information: SEE TE 04/13/25 Call Notes: Caller requires a call back to discuss Patient is calling again about a bill from [facility] test. States patient never and a TB test done Patient has contacted [facility] about the bill and was advised that they need a letter from Dr. Jace Walker that states he never ordered this test. Patient states was told this was going to be straightened out several times and he got another bill from them. Name on dee price is $384.77 Bill # [id number] Caller is requesting information about: Coding documented in this encounter Plan of Treatment Upcoming Encounters Date Type Department Care Team (Late st Contact Info) Description 12/09/2025 2:30 PM CDT Office Visit [facility] [address] [place] [address] Aston Walker MD 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 [place] [address] PCP - General Internal Medicine 04/01/20 documented as of this encounter
--- OUTSIDE RECORDS SUMMARY | 2025-07-19 12:43 | XMS_ITS | Encounter Summary ---
Author Organization [facility] Address [address] [place] [address] Care Team Providers Care Dialysis Registered Nurse Name Role Phone Aston Walker MD Primary Care Provider Reason for Visit * Reason Comments Labs Only Encounter Details Date Type Department Care Team (Late st Contact Info) Description 05/13/2025 Telephone [facility] Primary Care - [address] [place] [address] Aston Walker MD [address] [place] [address]. [address] [place] [address] Labs Only Social History Tobacco Use Types Packs/Day Years [...] week 08/04/2020 How often do you attend [facility] or islam services? 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 * Telephone Encounter - Adilene Pleitez - 05/13/2025 11:10 AM CDT Copied from [facility] #[id number]. Topic: CPA Information Request - Billing >> May 13, 2025 11:05 AM Adilene Trivedi wrote: Caller Name: Bennett Ordonez Callback Number: Telephone Information: Call Notes: Bennett is calling in regards to a TB Test for the patient that he is being billed $384.77 for, Bennett is stating that the TB test was not ordered by Dr. Walker for the patient and that he is needing a letter from Dr. Walker to be sent to [facility] advising of this so that they can clearthis bill, please see [facility] message on Bennett Ordonez's chart regarding this [id number], please advi se. Caller is requesting information about: [facility] Billing Patient Access Instructions 1. Warm Transfer to the appropriate [facility] Billing line, using the [facility] MILK DELIVERER contact in the [facility] Phone Book. 2. Select Referred to [facility] Resolve Reason and Click Close CRM. documented in this encounter Plan of Treatment Upcoming Encounters Date Type Department Care Team (Late st Contact Info) Description 12/09/2025 2:30 PM CDT Office Visit [address] [place] [address] Aston Walker MD [address] [place] [address]. 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 [address] [place] [address] PCP - General Internal Medicine 04/01/20 documented as of this encounter
--- OUTSIDE RECORDS SUMMARY | 2025-07-19 12:43 | XMS_ITS | Encounter Summary ---
Author Organization [facility] Address [address] [place] [address] Care Team Providers Care Press Reader Name Role Phone Aston Walker MD Primary Care Provider Reason for Visit * Reason Comments Provider Call Encounter Details Date Type Department Care Team (Late st Contact Info) Description 12/01/2024 Telephone [facility] Primary Care - [address] [place] [address] Aston Walker MD [address] [place] [address]. [address] [place] [address] Provider Call Social History Tobacco Use Types Packs/Day Years [...] week 08/04/2020 How often do you attend [facility] or jain services? More than 4 times per year 08/04/2020 Do you belong to any clubs o r organizations such as mosque groups, unions, fraternal or athletic groups, or [...] who hurts you emotionally and/or physically? No 11/27/2024 Food Insecurity Answer Date Recorded Patient needs follow up regardin 11/28/2024 Transportation Needs Answer Date Record ed Patient needs follow up regardin 11/28/2024 Utility Needs Answer Date Recorded Patient needs follow up regardin 11/28/2024 Comments No Sex and Gender Information Value Date Recorded Sex Assigned at Not on file Legal Sex Female 4:57 AM CUT OFF [employer] Gender Identity Not on file Sexual Orientation Not on file documented as of this encounter Miscellaneous Notes * Telephone Encounter - Lindsey Duran - 12/07/2024 9:15 AM CDT Lmor for pt to confirm appt for today * Telephone Encounter - Ольга Burch - 12/03/2024 9:05 AM CDT Lmor for spouse to call back to confirm appointment for Saturday with Dr. Walker * Telephone Encounter - Merlyn Wells LPN - 12/02/2024 8:33 AM CDT 12/02/2024 8:33 AM Called to advise per Dr. Walker ok to follow for HH orders. Merlyn VALDEZ * Telephone Encounter - Aston Walker MD - 12/01/2024 4:18 PM CDT We can follow yes, but we will need a F2F when possible for us to be able to sign. * Telephone Encounter - Urszula Isaac - 12/01/2024 3:30 PM CDT Copied from [facility] #[id number]. Topic: Mpzetjuz-Pj-Gxrufyau Call >> December 01, 2024 3:29 PM Urszula Morales wrote: Caller is requesting to speak with Clinical Care Team. Caller Name: Vandana Kirby Callback Number: [phone] secure Clinician Type: Home Health Co-worker Call Notes: requesting for PCP to follow for home health, please advise Is this addressing an immediate patient care need? No documented in this encounter Plan of Treatment Upcoming Encounters Date Type Department Care Team (Late st Contact Info) Description 12/09/2025 2:30 PM CDT Office Visit [address] [place] [address] Aston Walker MD [address] [place] [address]. 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 [place] [address] PCP - General Internal Medicine 04/01/20 documented as of this encounter
--- OUTSIDE RECORDS SUMMARY | 2025-07-19 12:43 | XMS_ITS | Encounter Summary ---
Author Organization [facility] Address [address] [place] [address] Care Team Providers Care Paper Twister Name Role Phone Aston Walker MD Primary Care Provider Encounter Details Date Type Department Care Team (Latest Contact Info) Description 02/10/2008 Outpatient Historical [facility], [address] Josr Velazquez MD [address] [facility] [address] [address] Essential Hypertension, Benign Social History Tobacco Use Types Packs/Day Years Used Date Smoking Tobacco: Never Alcohol Use Standard Drinks/Week Comments No 0 (1 standard drink = 0.6 oz pur e alcohol) Comments No Sex and Gender Information Value Date Recorded Sex Assigned at Not on file 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 Primary Care - [facility] [address] [place] [address] Aston Walker MD [address] [facility] [place] [address] 05/27/[address] [facility] Primary Care - 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 [place] [address] PCP - General Internal Medicine 04/01/20 documented as of this encounter
--- OUTSIDE RECORDS SUMMARY | 2025-07-19 12:43 | XMS_ITS | Encounter Summary ---
Author Organization [facility] Address [address] [place] [address] Care Team Providers Care E Commerce Merchant Name Role Phone Aston Walker MD Primary Care Provider Reason for Visit * Reason Comments Patient Communication Encounter Details Date Type Department Care Team (Late st Contact Info) Description 04/13/2025 Telephone [facility] Primary Care - [address] [place] [address] Aston Walker MD [address] [place] [address]. [address] [place] [address] Patient Communication Social History Tobacco Use Types Packs/Day Years [...] week 08/04/2020 How often do you attend [facility] or sabianism services? 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 * Telephone Encounter - Adilene Pleitez - 04/13/2025 3:12 PM CDT Copied from [facility] #[id number]. Topic: CPA Information Request >> Apr 13, 2025 3:11 PM Adilene Trivedi wrote: Caller is returning phone call from clinic. Caller Name: Bennett ( on phi) Patient/Caregiver Callback Number: Telephone Information: Patient Has Additional Questions Are the credentials of the caregiver who talked to the patient hotel breakfast attendant? Yes Call Notes: Patient/Caller requires a call back to discuss the TB Test documented in this encounter Plan of Treatment Upcoming Encounters Date Type Department Care Team (Late st Contact Info) Description 12/09/2025 2:30 PM CDT Office Visit [address] [place] [address] Aston Walker MD [address] [place] [address] 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 [place] [address] PCP - General Internal Medicine 04/01/20 documented as of this encounter
--- OUTSIDE RECORDS SUMMARY | 2025-07-19 12:43 | XMS_ITS | Encounter Summary ---
Author Organization [facility] Address [address] [place] [address] Care Team Providers Care Marine Rigger Name Role Phone Aston Walker MD Primary Care Provider Encounter Details Date Type Department Care Team (Latest Contact Info) Description 03/15/2009 Outpatient Historical [facility], [address] Josr Velazquez MD [address] [facility] [address] [address] Essential Hypertension, Benign Social History Tobacco Use Types Packs/Day Years Used Date Smoking Tobacco: Never Alcohol Use Standard Drinks/Week Comments No 0 (1 standard drink = 0.6 oz pur e alcohol) Comments No Sex and Gender Information Value Date Recorded Sex Assigned at Not on file Legal Sex Female 4:57 AM R D MANAGER Gender Identity Not on file Sexual Orientation Not on file documented as of this encounter Plan of Treatment Upcoming Encounters Date Type Department Care Team (Late st Contact Info) Description 12/09/2025 2:30 PM CDT Office Visit [facility] Primary Care - [facility] [address] [place] [address] Aston Walker MD [address] 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 [place] [address] PCP - General Internal Medicine 04/01/20 documented as of this encounter
--- OUTSIDE RECORDS SUMMARY | 2025-07-19 12:43 | XMS_ITS | Encounter Summary ---
Author Organization [facility] Address [address] [place] [address] Care Team Providers Care Children'S Zoo Caretaker Name Role Phone Aston Walker MD Primary Care Provider Encounter Details Date Type Department Care Team (Late st Contact Info) Description 08/12/2007 Outpatient Historical [facility] 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 [place] [address] PCP - General Internal Medicine 04/01/20 documented as of this encounter
--- OUTSIDE RECORDS SUMMARY | 2025-07-19 12:43 | XMS_ITS | Encounter Summary ---
Author Organization [facility] Address [address] [place] [address] Care Team Providers Care Grove Superintendent Name Role Phone Aston Walker MD Primary Care Provider Reason for Visit * Reason Comments Clinical Consult Before Scheduling Encounter Details Date Type Department Care Team (Late st Contact Info) Description 11/25/2024 Telephone [facility]3] Primary Care - [address] [place] [address] Aston Walker MD [address] [place] [address]. [address] [place] [address] Clinical Consult Before Scheduling Social History Tobacco Use Types Packs/Day Years [...] 08/04/2020 How often do you attend chur or quaker services? 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 Walker, pt should be seen at ER, called of pt to advise of recommendations per JR pt needs to be seen at ER, states he only wants his taken to either [facility] (which none of the facility staff recommended or [facility] advised to let 911 operators know that when they come to p/u pt, Mr. Ordonez verbalized an understanding, will have the facility call 911 to transport pt to [facility], no further action needed. Merlyn VALDEZ * Telephone Encounter - Carolina Ordonez - 11/25/2024 11:42 AM CDT Copied from [facility] #[id number]. Topic: Symptomatic Care >> Nov 25, 2024 11:38 AM Carolina Johnson wrote: Has this patient seen any provider (current or former) at the requested clinic in the past? Yes, Select the appropriate age range and symptom Patient has symptoms and is seeking care. 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 No [place] community is the [place] in? [place] Unable to schedule appointment within patient's desired timeframe. Patient declined all other options for immediate care, preferring to schedule first available. Scheduled appointment for Patients states patient is having a bladder prolapse through the anus, [facility] wants to speak with dr walker first to see if he agrees and if no could [facility] and what doctor he would recommend, [facility] needs help, declined appointment please call . If this is not clinically appropriate, please contact patient. documented in this encounter Plan of Treatment Upcoming Encounters Date Type Department Care Team (Late st Contact Info) Description 12/09/2025 2:30 PM CDT Office Visit [facility]3] Primary Care - [address] [place] [address] Aston Walker MD 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 [place] [address] PCP - General Internal Medicine 04/01/20 documented as of this encounter
--- OUTSIDE RECORDS SUMMARY | 2025-07-19 12:43 | XMS_ITS | Encounter Summary ---
Author Organization [facility] Address [address] [place] [address] Care Team Providers Care Security Expert Name Role Phone Aston Walker MD Primary Care Provider Reason for Visit * Reason Comments Question Encounter Details Date Type Department Care Team (Late st Contact Info) Description 02/01/2025 Telephone [facility] Primary Care - [address] [place] [address] Aston Walker MD [address] [place] [address]. [address] [place] [address] Question Social History Tobacco Use Types Packs/Day Years [...] How often do you attend chur or anabaptism services? 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 I sent them a MMM this AM. I agree with them * Telephone Encounter - Chantell Duran - 02/01/2025 10:46 AM CDT Copied from [facility] #[id number]. Topic: Patient or Caregiver Communication Request >> Feb 01, 2025 10:44 AM Chantell Reza wrote: Patient or Caregiver requesting that a message be sent to Care Team Caller: nessa (on phi) Patient/Caregiver Callback Number: [phone] Call Notes: would like to know would pcp be ok with pt going to see and comfortable with having surgery with this DR documented in this encounter Plan of Treatment Upcoming Encounters Date Type Department Care Team (Late st Contact Info) Description 12/09/2025 2:30 PM CDT Office Visit [facility] [address] [place] [address] Aston Walker MD 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 [place] [address] PCP - General Internal Medicine 04/01/20 documented as of this encounter
--- OUTSIDE RECORDS SUMMARY | 2025-07-19 12:44 | XMS_ITS | Encounter Summary ---
Author Organization [facility] Address [address] [place] [address] Care Team Providers Care Bilingual Research Interviewer Name Role Phone Aston Walker MD Primary Care Provider Encounter Details Date Type Department Care Team (Late st Contact Info) Description 11/06/2006 Outpatient Historical [facility] 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 [place] [address] PCP - General Internal Medicine 04/01/20 documented as of this encounter
--- OUTSIDE RECORDS SUMMARY | 2025-07-19 12:44 | XMS_ITS | Encounter Summary ---
Author Organization [facility] Address [address] [place] [address] Care Team Providers Care Element Setter Name Role Phone Aston Walker MD Primary Care Provider Encounter Details Date Type Department Care Team (Late st Contact Info) Description 01/28/2007 Outpatient Historical [facility] [address] [place] [address] [address] [place] [address] Josr Velazquez MD [address] [facility] [address] [phone] Social History Tobacco Use Types Packs/Day Years Used Date Smoking Tobacco: Never Assessed Comments Unknown Sex and Gender Information Value Date Recorded Sex Assigned at Not on file Legal Sex Female 4:57 AM FIELD OPERATIONS COORDINATOR Gender Identity Not on file Sexual Orientation Not on file documented as of this encounter Plan of Treatment Upcoming Encounters Date Type Department Care Team (Late st Contact Info) Description 12/09/2025 2:30 PM CDT Office Visit [facility] [address] [place] [address] Aston Walker MD [address] [place] [address] 05/27/2088 [facility] Primary Care - 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 [place] [address] PCP - General Internal Medicine 04/01/20 documented as of this encounter
--- OUTSIDE RECORDS SUMMARY | 2025-07-19 12:44 | XMS_ITS | Encounter Summary ---
Author Organization [facility] Address [address] [place] [address] Care Team Providers Care Atomic Welder Name Role Phone Aston Walker MD Primary Care Provider Encounter Details Date Type Department Care Team (Late st Contact Info) Description 03/01/1999 Outpatient Historical [facility] Social History Tobacco Use Types Packs/Day Years Used Date Smoking Tobacco: Never Assessed Comments Unknown Sex and Gender Information Value Date Recorded Sex Assigned at Not on file Legal Sex Female 4:57 AM PICK UP MAN Gender Identity Not on file Sexual Orientation Not on file documented as of this encounter Plan of Treatment Upcoming Encounters Date Type Department Care Team (Late st Contact Info) Description 12/09/2025 2:30 PM CDT Office Visit [address] [place] [address] Aston Walker MD [address] [place] [address]. 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 [address] [place] [address] PCP - General Internal Medicine 04/01/20 documented as of this encounter
--- OUTSIDE RECORDS SUMMARY | 2025-07-19 12:44 | XMS_ITS | Encounter Summary ---
Author Organization [facility] Address [address] [place] [address] Care Team Providers Care Mash Filter Cloth Changer Name Role Phone Aston Walker MD Primary Care Provider Encounter Details Date Type Department Care Team (Late st Contact Info) Description 01/28/2007 Outpatient Historical [facility] [address] [place] [address] [address] [place] [address] Josr Velazquez MD [address] [facility] [address] [phone] Social History Tobacco Use Types Packs/Day Years Used Date Smoking Tobacco: Never Assessed Comments Unknown Sex and Gender Information Value Date Recorded Sex Assigned at Not on file 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 [place] [address] PCP - General Internal Medicine 04/01/20 documented as of this encounter
--- OUTSIDE RECORDS SUMMARY | 2025-07-19 12:44 | XMS_ITS | Encounter Summary ---
Author Organization [facility] Address [address] [place] [address] Care Team Providers Care Feed Mill Operator Name Role Phone Aston Walker MD Primary Care Provider Encounter Details Date Type Department Care Team (Late st Contact Info) Description 01/28/2007 Outpatient Historical [facility] [address] [place] [address] [address] [place] [address] Josr Velazquez MD [address] [facility] [address] [phone] Social History Tobacco Use Types Packs/Day Years Used Date Smoking Tobacco: Never Assessed Comments Unknown Sex and Gender Information Value Date Recorded Sex Assigned at Not on file 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 [place] [address] PCP - General Internal Medicine 04/01/20 documented as of this encounter
--- OUTSIDE RECORDS SUMMARY | 2025-07-19 12:44 | XMS_ITS | Encounter Summary ---
Author Organization [facility] Address 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 [address] [place] [address] PCP - General Internal Medicine 04/01/20 documented as of this encounter
--- OUTSIDE RECORDS SUMMARY | 2025-07-19 12:44 | XMS_ITS | Clinical Summary ---
Author Organization [facility] Address [address] [place] [address] Care Team Providers Care Supervisor Tunnel Heading Name Role Phone Aston Walker MD Primary Care Prov ider Noble Washington MD Unavailable [phone] Allergies Active Allergy Reactions Criticality Noted Date Comments Penicillins Rash,Anaphylaxis,Anx iety,Chest tightness,Hypotension,Palpitations,Farideh rtness of breath,Wheezing High 02/09/1985 Medications atorvastatin (LIPITOR) 20 mg tablet Take 1 tablet (20 mg total) by mouth nightly Active amLODIPine-benaz epriL (LOTREL 5-20) 5-20 mg per capsule Take 1 capsule by mouth every morning Active multivitamin with folic acid 400 mcg tablet Take 1 tablet by mouth daily Active acidophilus-pect in, citrus 100 million cell-10 mg capsule Take 1 tablet by mouth daily Active nitrofurantoin monohydrate (MACROBID) 100 mg capsuleIndicatio ns:Urinary Tract/Genitourin kwabena Infection Take 1 capsule (100 mg total) by mouth 2 (two) times a day 6 pills left Active triamcinolone (KENALOG) 0.1 % creamIndications :Hives Apply topically 2 (two) times a day for 7 days Do not apply to face around eyes or to genitals 30 g Active Active Problems Problem Noted Date Diagnosed Date Oligouria 02/27/2025 Hypotension due to hypovolemia 02/27/2025 Metabolic acidosis 02/27/2025 Debility 02/27/2025 Hyponatremia 02/27/2025 Severe protein-calorie malnutrition 11/29/2024 Constipation, unspecified 11/28/2024 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 pn eumoniae) as the cause of diseases classified elsewhere 11/28/2024 Other specified diseases of anus and rectum 09/2024 Prediabetes 11/28/2024 Unspecified urinary incontinence 11/28/2024 Rectal prolapse 11/27/2024 Unspecified dementia, unspec ified severity, without behavioral disturbance, psychotic disturbance, mood disturbance, and anxiety 11/17/2024 Acute cystitis without hematuria 03/14/2024 Closed nondisplaced fracture of pelvis, unspecified part of pelvis, initial encounter 03/13/2024 Basal cell carcinoma of upper extremity 11/21/19 24 Neoplasm of uncertain behavior of skin Inflamed seborrheic keratosis 01/31/2023 Skin eschar 01/31/2023 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 08/02/2022 Actinic keratosis 09/26/2021 Stage 3a chronic kidney disease 08/04/2020 Allergic rhinitis due to pollen 11/15/2015 Benign essential HTN 01/28/2007 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 hout current pathological fracture 07/29/2000 GERD (gastroesophageal reflux disease) 1 Gout, unspecified 07/29/2000 Hyperlipidemia, unspecified 07/29/2000 MVP (mitral valve prolapse) 07/29/2000 Encounters Date Type Department Care Team Description 05/12/2025 11:00 AM CDT Office Visit [facility] at [address] [address] Ruth Paredes, VIET Hives (Primary Dx); Skin lesion of scalp; Dysuria from Last 3 Months Immunizations Immunization Administration Dates Next Due Influenza, Trivalent, High D ose, Split, Preservative Free, Intramuscular 04/13/2019,05/21/2018 Influenza, Trivalent, IM (MDV) 03/29/2023 Pfizer SARS-CoV-2 Monovalent Vaccination (12+ Yrs) PURPLE 05/05/2021,10/06/2020,09/14/2020 Pneumococcal Polysaccharide PPV23 07/29/2004, ZOSTER LIVE 02/18/2015 Surgical History Surgery Date Site/Laterality Comments GALLBLADDER SURGERY HYSTERECTOMY FOOT SURGERY CHOLECYSTECTOMY Medical History Medical History Date Comments Hypertension Stroke (cerebrum) Mitral valve prolapse GERD (gastroesophageal reflux disease) Chronic kidney disease Cancer (HCC) Osteoporosis Family History Medical History Relation Name Comments Heart attack Father Relation Name Status Comments Father Social History Tobacco Use Types Packs/Day Years Used Date Smoking Tobacco: Never Smokeless Tobacco: Never Tobacco Cessation:Counseling Given: No [facility] Utilities Answer Date Recorded In the past 12 months has [employer] electric, gas, oil, or water [employer] threatened to shut off services in your home? No 03/01/2025 Social Connection and Isolation Panel Answer Date Recorded In a typical week, how many times do you talk on the phone with family, friends, or neighbors? Never 03/01/2025 How often do you get together with friends or re latives? Once a week 03/01/2025 How often do you attend episcopalian or islam serv ices? Never 03/01/2025 Do you belong to any clubs o r organizations such as episcopalian groups, unions, fraternal or athletic groups, or school groups? No 03/01/2025 How often do you attend meet ings of the clubs or organizations you belong to? Never 03/01/2025 Are you , , di vorced, , never , or living with a partner? 03/01/2025 AUDIT-C Answer Date Recorded Q1: How often do you have a drink containing alcohol? Never 02/26/2025 Q2: How many drinks containi ng alcohol do you have on a typical day when you are drinking? Patient does not drink Q3: How often do you have si x or more drinks on one occasion? Never 02/26/2025 Overall Financial Resource Strain (CARDIA) Answe r Date Recorded How hard is it for you to pa y for the very basics like food, housing, medical care, and heating? Not hard at all 03/01/2025 Hunger Vital Sign Answer Date Recorded Within the past 12 months, y ou worried that your food would run out before you got the money to buy more. Never true 03/01/20 25 Within the past 12 months, t he food you bought just didn't last and you didn't have money to get more. Never true 03/01/2025 PRAPARE - Transportation Answer Date Re corded In the past 12 months, has l ack of transportation kept you from medical appointments or from getting medications? No 10/2024 In the past 12 months, has l ack of transportation kept you from meetings, work, or from getting things needed for daily living? No 03/01/2025 Housing Stability Vital Sign Answer Trae e Recorded In the last 12 months, was t here a time when you were not able to pay the mortgage or rent on time? No 03/01/2025 In the past 12 months, how m any times have you moved where you were living? 1 03/01/2025 At any time in the past 12 m [facility], were you homeless or living in a group home (including now)? No 03/01/2025 Personal Safety Answer Date Recorded Have you ever been in or are you currently in a harmful physical or emotional relationship or is someone making you feel afraid or unsafe? 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 Gender Identity Not on file Sexual Orientation Not on file Last Filed Vital Signs Vital Sign Reading Time Taken Comments Blood Pressure 114/76 05/12/2025 10:53 AM CDT Pulse 93 05/12/2025 10:53 AM CDT Temperature 36.8 C (98.2 F) 05/12/2025 10:53 AM CDT Respiratory Rate 20 05/12/2025 10:53 AM CDT Oxygen Saturation 98% 05/12/2025 10:53 AM CDT Inhaled Oxygen Concentration - - Weight 55.3 kg (122 lb) 05/12/2025 10:53 AM CDT Height 157.5 cm (5' 2) 05/12/2025 10:53 AM CDT Body Mass Index 22.31 05/12/2025 10:53 AM CDT Plan of Treatment Health Maintenance Due Date Last Done Comments Depression Screening 1935 Osteoporosis Screening-Bone Density Scan 1935 DTaP/Tdap/Td Vaccine (1 - Tdap) 1948 Hepatitis B Screening 1955 Well Visit 65+ 2002 Pneumococcal vaccine 65+ (2 of 2 - PCV) 07/29/2005 07/29/2004, 03/23/2004 Zoster Vaccine (2 of 3) 04/15/2015 02/18/2015 Covid-19 Vaccine (4 - season) 2025 05/05/2021, 10/06/2020, 09/14/2020 Influenza Vaccine (#1) 2025 , 04/13/2019, 05/21/2018 Fall Risk Assessment 03/03/2026 03/03/2025 [place] [address] MEDICARE [facility] [place] [address] MEDICARE [employer] [place] Advance Directives For more information, please contact: [phone] * Full Code (Latest Code Status on File) Date Activated Date Inactivated Comments 02/25/2025 1:13 PM 03/03/2025 9:59 PM * Full Code Date Activated Date Inactivated Comments 03/13/2024 6:52 AM 03/17/2024 5:51 PM Care Teams Supervisor Tunnel Heading Relationship Specialty Start Date End Date Aston Walker MD [address] [place] [address] PCP - General Internal Medicine 03/16/24 Noble Washington MD [address] [facility] [address] [place] [address] Consulting Physician Colon and Rectal Surgery 03/03/25
--- OUTSIDE RECORDS SUMMARY | 2025-07-19 12:44 | XMS_ITS | Encounter Summary ---
Author Organization [facility] Address [address] [place] [address] Care Team Providers Care Crushing Machine Operator Name Role Phone Aston Walker MD Primary Care Provider Encounter Details Date Type Department Care Team (Latest Contact Info) Description 01/28/2007 Outpatient Historical [facility] [address] [place] [address] Josr Velazquez MD [address] [facility] [address] [address] Routine General Medical Examination at a Health Care Facility (Primary Dx) Social History Tobacco Use Types Packs/Day Years Used Date Smoking Tobacco: Never Assessed Comments Unknown Sex and Gender Information Value Date Recorded Sex Assigned at Not on file 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 [place] [address] 05/27/[address] [facility] [address] [facility] [address] [place] [address] Josr Velazquez MD [address] [facility] [address] [id number] documented as of this encounter Procedures Procedure Name Priority Date/Time Associated Diagnosis Comments URINALYSIS WITH REFLEX CULTURE Routine 01/28/2007 7:49 PM CDT CBC WITH DIFFERENTIAL Routine 01/28/2007 7:49 PM CDT CBC WITH DIFFERENTIAL Routine 01/28/2007 7:49 PM CDT URINALYSIS W/REFLEX MICROSCOPIC Routine 01/28/2007 7:49 PM CDT TSH Routine 01/28/2007 7:49 PM CDT HEMOGLOBIN A1C Routine 01/28/2007 7:49 PM CDT LIPID PANEL Routine 01/28/2007 7:49 PM CDT COMPREHENSIVE METABOLIC PANEL Routine 01/28/2007 7:49 PM CDT documented in this encounter Results * HEMOGLOBIN A1C (01/28/2007 7:49 PM CDT) HEMOGLOBIN A1C 5.9 4.1 - 6.1 % of Hgb INTERFACE SYSTEM GLUCOSE, MEAN BLOOD 133 mg/dL INTERFACE SYSTEM 01/28/2007 7:49 PM CDT us Josr Velazquez MD CHEMISTRY ORDERABLES Edited INTERFACE SYSTEM Refer to clinic/hospital department * (ABNORMAL) URINALYSIS (01/28/2007 7:49 PM CDT) COLOR UA Yellow INTERFACE SYSTEM CLARITY UA Clear Clear INTERFACE SYSTEM SPECIFIC GRAVITY UA 1.012 1.001 - 1.035 INTERFACE SYSTEM PH UA 5.5 5.0 - 8.0 INTERFACE SYSTEM LEUKOCYTE ESTERASE UA 3+(A) Negative INTERFACE SYSTEM NITRITE UA Negative Negative INTERFACE SYSTEM PROTEIN UA Negative Negative INTERFACE SYSTEM GLUCOSE UA Negative Negative INTERFACE SYSTEM KETONES UA 1+(A) Negative INTERFACE SYSTEM UROBILINOGEN UA <1 <=1 mg/dL INTE RFACE SYSTEM BILIRUBIN UA Negative Negative INTERFA CE SYSTEM BLOOD UA 1+(A) Negative INTERFACE SYSTEM WBC UA 19(H) 0 - 5 /HPF INTERFACE SYSTEM RBC UA 8(H) 0 - 4 /HPF INTERFACE SYSTEM BACTERIA UA 1+(A) None Seen /HPF INTERFACE SYSTEM EPITHELIAL CELLS, URINE 2-5 /HPF INTERFACE SYSTEM 01/28/2007 7:49 PM CDT Josr Velazquez MD URINE ORDERABLES Edited Performing Organization Address [facility] Phone Number INTERFACE SYSTEM Refer to clinic/hospital department * URINALYSIS WITH REFLEX CULTURE (01/28/2007 7:49 PM CDT) Pathologist [facility] URINE CULTURE ORDER Culture ordered INTERFACE SYSTEM Comment: Criteria for a reflex culture include one or more of the following: Abn ormal nitrite, leukocyte esterase, WBCs or RBCs. Lack of qualifying criteria does not exclude the possiblity of a urinary tract infection. Dilute urine, drug interference, etc. may decrease the sensitivity of the criteria analytes. 01/28/2007 7:49 PM CDT Josr Velazquez MD URINE ORDERABLES Edited Performing Organization Address [facility] Phone Number INTERFACE SYSTEM Refer to clinic/hospital department * (ABNORMAL) CBC WITH DIFFERENTIAL (01/28/2007 7:49 PM CDT) NEUTROPHILS 72(H) 45 - 70 % INTERFAC E SYSTEM LYMPHOCYTES 16 16 - 45 % INTERFAC E SYSTEM MONOCYTES 11 3 - 13 % INTERFACE SYSTEM EOSINOPHILS 1 0 - 7 % INTERFAC E SYSTEM BASOPHILS 0 0 - 2 % INTERFACE SYSTEM NEUTROPHIL ABSOLUTE 5.33 1.90 - 7.00 K/uL INTERFACE SYSTEM LYMPHOCYTE ABSOLUTE 1.22 0.70 - 4.50 K/uL INTERFACE SYSTEM MONOCYTE ABSOLUTE 0.79 0.10 - 1.30 K/uL INTERFACE SYSTEM EOSINOPHIL ABSOLUTE 0.09 0.00 - 0.70 K/uL INTERFACE SYSTEM BASOPHILS ABSOLUTE 0.01 0.00 - 0.20 K/uL INTERFACE SYSTEM 01/28/2007 7:49 PM CDT Josr Velazquez MD HEMATOLOGY ORDERABLES Edited Performing Organization Address [facility] Phone Number INTERFACE SYSTEM Refer to clinic/hospital department * (ABNORMAL) CBC WITH DIFFERENTIAL (01/28/2007 7:49 PM CDT) WBC 7.4 4.0 - 9.8 K/uL INTERFACE SYSTEM RBC 4.05 3.90 - 4.90 M/uL INTERFACE SYSTEM HEMOGLOBIN 12.2 11.8 - 14.8 g/dL INTERFACE SYSTEM HEMATOCRIT 35.2(L) 35.5 - 44.0 % INTERFACE SYSTEM MCV 86.9 82.0 - 99.0 fL INTERFACE SYSTEM MCH 30.1 27.2 - 32.6 pg INTERFACE SYSTEM MCHC 34.7 31.5 - 35.5 % INTERFACE SYSTEM RDW 12.9 11.5 - 14.5 % INTERFACE SYSTEM RDW-STDEV 41.2 37.1 - 48.7 fL INTERFACE SYSTEM PLATELETS 327 140 - 350 K/uL INTERFACE SYSTEM MPV 10.7 9.3 - 12.4 fL INTERFACE SYSTEM 01/28/2007 7:49 PM CDT Josr Velazquez MD HEMATOLOGY ORDERABLES Edited Performing Organization Address [facility] Phone Number INTERFACE SYSTEM Refer to clinic/hospital department * TSH (01/28/2007 7:49 PM CDT) TSH 1.23 0.27 - 4.20 uU/mL INTERFACE SYSTEM 01/28/2007 7:49 PM CDT Josr Velazquez MD CHEMISTRY ORDERABLES Edited Performing Organization Address [facility] Phone Number INTERFACE SYSTEM Refer to clinic/hospital department * (ABNORMAL) COMPREHENSIVE METABOLIC PANEL (01/28/2007 7:49 PM CDT) GLUCOSE 121(H) 65 - 99 mg/dL INTERFACE SYSTEM CREATININE 0.79 0.51 - 0.95 mg/dL INTERFACE SYSTEM CALCIUM 9.3 8.4 - 10.2 mg/dL INTERFACE SYSTEM ALKALINE PHOSPHATASE 89 35 - 104 U/L INTERFACE SYSTEM AST 18 12 - 32 U/L INTERFACE SYSTEM ALT 17 0 - 31 U/L INTERFACE SYSTEM TOTAL PROTEIN 6.8 6.3 - 8.6 g/dL INTERFACE SYSTEM ALBUMIN 3.8 3.4 - 4.8 g/dL INTERFACE SYSTEM BILIRUBIN TOTAL 0.3 0.2 - 1.0 mg/dL INTERFACE SYSTEM BUN 16 6 - 20 mg/dL INTERFACE SYSTEM SODIUM 138 135 - 145 mmol/L INTERFACE SYSTEM POTASSIUM 4.1 3.5 - 4.9 mmol/L INTERFACE SYSTEM CHLORIDE 101 96 - 108 mmol/L INTERFACE SYSTEM CO2 27 22 - 30 mmol/L INTERFACE SYSTEM GFR, >60 >=60 mL/min/1. 7 sq meter INTERFACE SYSTEM GFR >60 >=60 mL/min/1. 7 sq meter INTERFACE SYSTEM Comment: Estimated GFR rate interpretative information for both Americans and non- Americans is available on the [facility] Intranet at: [email or web address] Select: Lab Policies and Procedures Select: Reference Ranges - GFR 01/28/2007 7:49 PM CDT Josr Velazquez MD CHEMISTRY ORDERABLES Edited INTERFACE SYSTEM Refer to clinic/hospital department * (ABNORMAL) LIPID PANEL (01/28/2007 7:49 PM CDT) CHOLESTEROL 158 100 - 199 mg/dL INTERFACE SYSTEM TRIGLYCERIDE 42 10 - 149 mg/dL INTERFACE SYSTEM HDL 50 40 - 59 mg/dL INTERFACE SYSTEM CHOL/HDL RATIO 3.2 2.0 - 5.0 INTER FACE SYSTEM LDL CALCULATED 100(H) <=99 mg/dL INTERFACE SYSTEM LIPID PANEL COMMENT See Below INTERFACE SYSTEM Comment: The adult ATP and pediatric NCEP classifications for lipids are available on the [facility] Intranet at: [email or web address] Select: Lab Policies and Procedures Select: Reference Ranges - Lipids 01/28/2007 7:49 PM CDT Josr Velazquez MD CHEMISTRY ORDERABLES Edited INTERFACE SYSTEM Refer to clinic/hospital department documented in this encounter Visit Diagnoses Diagnosis Routine general medical examination at a health care facility- Primary documented in this encounter Additional Health Concerns 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 [address] [place] [address] PCP - General Internal Medicine 04/01/20 documented as of this encounter
--- OUTSIDE RECORDS SUMMARY | 2025-07-19 12:44 | XMS_ITS | Encounter Summary ---
Author Organization [facility] Address [address] [place] [address] Care Team Providers Care Waiter/Waitress Cocktail Lounge Name Role Phone Aston Walker MD Primary Care Provider Encounter Details Date Type Department Care Team (Late st Contact Info) Description 07/04/2005 Outpatient Historical [facility] 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 [place] [address] PCP - General Internal Medicine 04/01/20 documented as of this encounter
[2025-07-19] MEDS: SODIUM CHLORIDE 0.9% IV 1,000 ML 999 ML IV CONT (13:23)
--- OUTSIDE RECORDS SUMMARY | 2025-07-19 13:58 | XMS_ITS | Encounter Summary ---
Author Organization [facility] Address 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 [place] [address] 05/27/2088 [facility] - 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 [place] [address] PCP - General Internal Medicine 04/01/20 documented as of this encounter
--- OUTSIDE RECORDS SUMMARY | 2025-07-19 13:58 | XMS_ITS | Encounter Summary ---
Author Organization [facility] Address [address] [place] [address] Care Team Providers Care Aerial Applicator Pilot Name Role Phone Aston Walker MD Primary Care Provider Reason for Visit * Reason Comments Clinical Consult Before Scheduling Encounter Details Date Type Department Care Team (Late st Contact Info) Description 11/25/2024 Telephone [facility] Primary Care - [address] [place] [address] Aston Walker MD [address] [place] [address]. [address] [place] [address] Clinical Consult Before Scheduling Social [...] How often do you attend chur or samaritan services? 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 advised to let 911 operators know that when they come to p/u pt, Mr. Ordonez verbalized an understanding, will have the facility call [facility], no further action needed. Merlyn VALDEZ * Telephone Encounter - Carolina Ordonez - 11/25/2024 11:42 AM CDT Copied from [facility] #[id number]. Topic: Symptomatic Care >> Nov 25, 2024 11:38 AM Carolina Johnson wrote: Has this patient seen any provider (current or former) at the requested clinic in the past? Yes, Select the appropriate age range and symptom Patient has symptoms and is seeking care. Caller Name: NICHOL ORDONEZ Callback Number: [phone] Call Notes: Patients states patient is having a bladder prolapse through the anus, [facility], [facility] wants to speak with dr walker first to see if he agrees and if nocould he get her in at [facility] and what doctor he would recommend, states needs help, declined appointment please call Age Range/Symptom: Adult 18+ - Other Symptoms: Patients states patient is having a bladder prolapse through the anus, [facility], [facility] wants to speak with dr walker first to see if he agrees and if no could he get her in at [facility] and what doctor he would recommend, [...] having a bladder prolapse through the anus, [facility] wants to speak with dr walker first to see if he agrees and if no could he get her in at [facility] and what doctor he would recommend, [facility] needs help, declined appointment please call . If this is not clinically appropriate, please contact patient. documented in this encounter Plan of Treatment Upcoming Encounters Date Type Department Care Team (Late st Contact Info) Description 12/09/2025 2:30 PM CDT Office Visit [facility] Primary Care - [address] [place] [address] Aston Walker MD 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 [place] [address] PCP - General Internal Medicine 04/01/20 documented as of this encounter
--- OUTSIDE RECORDS SUMMARY | 2025-07-19 13:58 | XMS_ITS | Clinical Summary ---
Author Organization [facility] Address [address] [place] [address] Care Team Providers Care Continuous Miner Operator Helper Name Role Phone Aston Walker MD Primary Care Prov ider Noble Washington MD Unavailable [phone] Allergies Active Allergy Reactions Criticality Noted Date [...] Description 05/12/2025 11:00 AM CDT Office Visit [facility] at [address] [address] Ruth Paredes, VIET Hives (Primary [...] Smokeless Tobacco: Never Tobacco Cessation:Counseling Given: No [facility] Utilities Answer Date Recorded In the past 12 months has [employer] electric, gas, oil, or water [employer] threatened to shut off services in your home? No 03/01/2025 Social Connection and Isolation Panel Answer Date Recorded In a typical week, how many times do you talk on the phone with family, friends, or neighbors? Never 03/01/2025 How often do you get together with friends or re latives? Once a week 03/01/2025 How often do you attend mormonism or episcopalian serv ices? Never 03/01/2025 Do you belong to any clubs o r organizations such as mormonism groups, unions, fraternal or athletic groups, or [...] any time in the past 12 m [facility], were you homeless or living in a [facility]p (including now)? No 03/01/2025 Personal Safety Answer Date Recorded Have you ever been in or are you currently in a harmful physical or emotional relationship or is someone making you feel afraid or unsafe? Denies 02/26/2025 Comments No Sex and Gender Information Value Date Recorded Sex Assigned at Not on file Legal Sex Female 3:33 PM BUS MATRON Gender Identity Not on file Sexual Orientation [...] 05/21/2018 Fall Risk Assessment 03/03/2026 03/03/2025 [email or web address] [address] MEDICARE [facility] [email or web address] [address] MEDICARE [employer] Advance Directives For more information, please contact: [phone] * Full Code (Latest Code Status on File) Date Activated Date Inactivated Comments 02/25/2025 1:13 PM 03/03/2025 9:59 PM * Full Code Date Activated Date Inactivated Comments 03/13/2024 6:52 AM 03/17/2024 5:51 PM Care Teams Continuous Miner Operator Helper Relationship Specialty Start Date End Date Aston Walker MD [address] [place] [address] PCP - General Internal Medicine 03/16/24 Noble Washington MD [address] [facility] [address] [place] [address] Consulting Physician Colon and Rectal Surgery 03/03/25
--- OUTSIDE RECORDS SUMMARY | 2025-07-19 13:58 | XMS_ITS | Encounter Summary ---
Author Organization [facility] Address [address] [place] [address] Care Team Providers Care Health Program Specialist Name Role Phone Aston Walker MD Primary Care Provider Encounter Details Date Type Department Care Team (Late st Contact Info) Description 08/12/2007 Outpatient Historical [facility] 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 [address] [facility] [address] [place] [address] Aston Walker MD [address] [place] [address] 05/27/2088 Abstract 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 [place] [address] PCP - General Internal Medicine 04/01/20 documented as of this encounter
--- OUTSIDE RECORDS SUMMARY | 2025-07-19 13:58 | XMS_ITS | Clinical Summary ---
Author Organization [facility] Address [address] [place] [address] Care Team Providers Care Passport Support Manager Name Role Phone Aston Walker MD Primary [...] migh t be different from the original. Graphic Arts Technician--Dr. Neetu Castrejon Problem Noted Date Diagnosed Date [...] Routine [facility] 03/15/2009 08/04/2020 Sprain and strain of other s pecified sites of knee and leg 01/28/2007 07/14/2008 Routine general medical exam ination at a health care facility 01/28/2007 07/14/2008 Encounters Date Type Department Care Team Description 06/21/2025 11:00 AM PEOPLESOFT HR DEVELOPER Office Visit [facility] Care - [address] [place] [address] Aston Walker MD Stage 3a chronic kidney disease (CMS/HCC) (Primary Dx); Frail elderly; History of CVA (cerebrovascular accident); Moderate late onset Alzheimer's dementia without behavioral disturbance, psychotic disturbance, mood disturbance, or anxiety (CMS/HCC); Mixed hyperlipidemia; Prediabetes; Need for RSV immunization 06/15/2025 External Device Data STL ABSTRACTION Provider, Abstract 06/11/2025 [facility] [address] [place] [address] Aston Walker MD Labs Only 05/28/2025 [facility] [address] [place] [address] Aston Walker MD needs letter 05/13/2025 [facility] [address] [place] [address] Aston Walker MD Labs Only 04/22/2025 [facility] [address] [place] [address] Aston Walker MD Paperwork 04/20/2025 External Device Data STL ABSTRACTION Provider, Abstract 04/20/2025 [facility] [address] [place] [address] Aston Walker MD Paperwork 04/19/2025 [facility] [address] [facility] [address] [place] [address] Aston Walker MD Provider Call [...] COVID-19 VACCINE - EMERGENCY USE AUTHORIZATION, MRNA, [id number](PF) 30 MCG/0.3 ML IM SUSP 05/05/2021,10/06/2020,09/14/2020 (PNEUMOVAX 23)(50 YRS UP) PN EUMOCOCCAL POLYSACCHARIDE (PPV23) 0.5 ML, IM 07/29/2004 (PREVNAR 20)(6 WKS UP) PNEUM OCOCCAL CONJUGATE VACCINE 20-VALENT (PCV20), POLYSACCHARIDE [id number] CONJUGATE, ADJUVANT 0.5 ML (PF) IM 04/23/2022 [...] Raundle Heart Attack Father Raundle Healthy Mother Minden Relation Name Status Comments Father Raundle Mother Minden Alive Social History Tobacco Use Types Packs/Day [...] 08/04/2020 How often do you attend chur [employer] or presybeterian services? More than 4 times per year [...] on file Legal Sex Female 4:57 AM PEOPLESOFT HR DEVELOPER Gender Identity Not on file Sexual Orientation Not on file Last Filed Vital Signs Vital Sign Reading Time Taken Comments Blood Pressure 120/86 06/21/2025 10:31 AM PEOPLESOFT HR DEVELOPER Pulse 70 06/21/2025 10:31 AM PEOPLESOFT HR DEVELOPER Temperature 36.5 C (97.7 F) 06/21/2025 10:31 AM PEOPLESOFT HR DEVELOPER Respiratory Rate 16 06/21/2025 10:3 1 AM PEOPLESOFT HR DEVELOPER Oxygen Saturation 95% 06/21/2025 10: 31 AM PEOPLESOFT HR DEVELOPER Inhaled Oxygen Concentration - - Weight 58.4 kg (128 lb 12.8 oz) 025 10:31 AM PEOPLESOFT HR DEVELOPER Height 157.5 cm (5' 2) 06/21/2025 10:3 1 AM PEOPLESOFT HR DEVELOPER Body Mass Index 23.56 06/21/2025 10:31 AM PEOPLESOFT HR DEVELOPER Plan of Treatment Upcoming Encounters Date Type Department Care Team (Late st Contact Info) Description 12/09/2025 2:30 PM CDT Office Visit [facility] - [address] [place] [address] Aston Walker MD 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 [address] [place] [address] PCP - General Internal Medicine 04/01/20
--- OUTSIDE RECORDS SUMMARY | 2025-07-19 13:58 | XMS_ITS | Encounter Summary ---
Author Organization [facility] Address [address] [place] [address] Care Team Providers Care Primary Counselor Name Role Phone Aston Walker MD Primary Care Provider Encounter Details Date Type Department Care Team (Late st Contact Info) Description 03/01/1999 Outpatient Historical [facility] Deondre Knapp Social History Tobacco Use Types Packs/Day Years Used Date Smoking Tobacco: Never Assessed Comments Unknown Sex and Gender Information Value Date Recorded Sex Assigned at Not on file Legal Sex Female 4:57 AM K 9 HANDLER/ DEPUTY Gender Identity Not on file Sexual Orientation Not on file documented as of this encounter Plan of Treatment Upcoming Encounters Date Type Department Care Team (Late st Contact Info) Description 12/09/2025 2:30 PM CDT Office Visit [address] [place] [address] Aston Walker MD [address] [place] [address]. 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 [address] [place] [address] PCP - General Internal Medicine 04/01/20 documented as of this encounter
--- OUTSIDE RECORDS SUMMARY | 2025-07-19 13:58 | XMS_ITS | Encounter Summary ---
Author Organization [facility] Address [address] [place] [address] Care Team Providers Care Guest Service Representative Name Role Phone Aston Walker MD Primary Care Provider Encounter Details Date Type Department Care Team (Late st Contact Info) Description 01/28/2007 Outpatient Historical [facility] [address] [place] [address] [address] [place] [address] Josr Velazquez MD [address] [facility] [address] [phone] Social History Tobacco Use Types Packs/Day Years Used Date Smoking Tobacco: Never Assessed Comments Unknown Sex and Gender Information Value Date Recorded Sex Assigned at Not on file Legal Sex Female 4:57 AM CELL STRIPPER FINAL Gender Identity Not on file Sexual Orientation Not on file documented as of this encounter Plan of Treatment Upcoming Encounters Date Type Department Care Team (Late st Contact Info) Description 12/09/2025 2:30 PM CDT Office Visit [facility] [address] [facility] [address] [place] [address] Aston Walker MD [address] 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 [place] [address] PCP - General Internal Medicine 04/01/20 documented as of this encounter
--- OUTSIDE RECORDS SUMMARY | 2025-07-19 13:58 | XMS_ITS | Encounter Summary ---
Author Organization [facility] Address 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 [address] [place] [address] PCP - General Internal Medicine 04/01/20 documented as of this encounter
--- OUTSIDE RECORDS SUMMARY | 2025-07-19 13:58 | XMS_ITS | Encounter Summary ---
Author Organization [facility] Address [address] [place] [address] Care Team Providers Care Electrocardiograph Operator Name Role Phone Aston Walker MD Primary Care Provider Encounter Details Date Type Department Care Team (Late st Contact Info) Description 01/28/2007 Orders Only [facility] Primary Care - [address] [place] [address] Josr Velazquez MD [address] [facility] [address] [address] Social History Tobacco Use Types Packs/Day Years Used Date Smoking Tobacco: Never Assessed Comments Unknown Sex and Gender Information Value Date Recorded Sex Assigned at Not on file 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 LAB ORDERS: Order number: [id number] Test Ordered: CBC W/ DIFFERENTIAL 3150 Order number: [id number] Test Ordered: COMPREHENSIVE METABOLIC PANEL & GFR 1112 Order number: [id number] Test Ordered: LIPID PANEL 1078 Order number: [id number] Test Ordered: TSH 1720 Order number: [id number] Test Ordered: URINALYSIS WITH REFLEX CULTURE 2221 Order number: [id number] Test Ordered: EKG W/ INTERPRETATION AND REPORT [id number] HEALTH MAINTENANCE: LAST BREAST EXAM DATE: 2005. [...] Description 12/09/2025 2:30 PM CDT Office Visit [facility] [address] [facility] [address] [place] [address] Aston Walker MD 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 [place] [address] PCP - General Internal Medicine 04/01/20 documented as of this encounter
--- OUTSIDE RECORDS SUMMARY | 2025-07-19 13:58 | XMS_ITS | Encounter Summary ---
Author Organization [facility] Address [address] [place] [address] Care Team Providers Care Compliance Spec Name Role Phone Aston Walker MD Primary Care Provider Encounter Details Date Type Department Care Team (Latest Contact Info) Description 03/15/2009 Outpatient Historical [facility], [address] Josr Velazquez MD [address] [facility] [facility] [address] [address] Essential Hypertension, Benign Social History Tobacco Use Types Packs/Day Years Used Date Smoking Tobacco: Never Alcohol Use Standard Drinks/Week Comments No 0 (1 standard drink = 0.6 oz pur e alcohol) Comments No Sex and Gender Information Value Date Recorded Sex Assigned at Not on file Legal Sex Female 4:57 AM PRACTICE BUSINESS ASST Gender Identity Not on file Sexual Orientation Not on file documented as of this encounter Plan of Treatment Upcoming Encounters Date Type Department Care Team (Late st Contact Info) Description 12/09/2025 2:30 PM CDT Office Visit [facility] Primary Care - [facility] [address] [place] [address] Aston Walker MD [address] 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 [place] [address] PCP - General Internal Medicine 04/01/20 documented as of this encounter
--- OUTSIDE RECORDS SUMMARY | 2025-07-19 13:58 | XMS_ITS | Encounter Summary ---
Author Organization [facility] Address [address] [place] [address] Care Team Providers Care Laundry Manager Name Role Phone Aston Walker MD Primary Care Provider Encounter Details Date Type Department Care Team (Late st Contact Info) Description 01/28/2007 Outpatient Historical [facility] [address] [place] [address] [address] [place] [address] Josr Velazquez MD [address] [facility] [address] [phone] Social History Tobacco Use Types Packs/Day Years Used Date Smoking Tobacco: Never Assessed Comments Unknown Sex and Gender Information Value Date Recorded Sex Assigned at Not on file Legal Sex Female 4:57 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 [place] [address] PCP - General Internal Medicine 04/01/20 documented as of this encounter
--- OUTSIDE RECORDS SUMMARY | 2025-07-19 13:58 | XMS_ITS | Encounter Summary ---
Author Organization [facility] Address [address] [place] [address] Care Team Providers Care Furnace Charger Name Role Phone Aston Walker MD Primary Care Provider Reason for Visit * Reason Comments needs letter Encounter Details Date Type Department Care Team (Late st Contact Info) Description 05/28/2025 Telephone [facility] Primary Care - [address] [place] [address] Aston Walker MD [address] [place] [address]. [address] [place] [address] needs letter Social History Tobacco [...] week 08/04/2020 How often do you attend [facility] or sikh services? 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 Topic: CPA Information Request - Billing >> May 28, 2025 10:39 AM Trish Trivedi wrote: Caller Name: Bennett on PHI Callback Number: Telephone Information: SEE TE 04/13/25 Call Notes: Caller requires a call back to discuss Patient is calling again about a bill from [facility]. States patient never and a TB test done Patient has contacted [employer] about the bill and was advised that they need a letter from Dr. Jace Walker that states he never ordered this test. Patient states was told this was going to be straightened out several times and he got another bill from them. Name on dee price is $384.77 Bill # [id number] Caller is requesting information about: Coding documented in this encounter Plan of Treatment Upcoming Encounters Date Type Department Care Team (Late st Contact Info) Description 12/09/2025 2:30 PM CDT Office Visit [facility] [address] [place] [address] Aston Walker MD 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 [place] [address] PCP - General Internal Medicine 04/01/20 documented as of this encounter
--- OUTSIDE RECORDS SUMMARY | 2025-07-19 13:58 | XMS_ITS | Encounter Summary ---
Author Organization [facility] Address [address] [place] [address] Care Team Providers Care Dumper Bailer Operator Name Role Phone Aston Walker MD Primary Care Provider Reason for Visit * Reason Comments Labs Only Encounter Details Date Type Department Care Team (Late st Contact Info) Description 05/13/2025 Telephone [facility] Primary Care - [address] [place] [address] Aston Walker MD [address] [place] [address]. [address] [place] [address] Labs Only Social History Tobacco [...] week 08/04/2020 How often do you attend [facility] or episcopalian services? 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 Topic: CPA Information Request - Billing >> [...] from Dr. Walker to be sent to [facility] advising of this so that they can clearthis bill, please see [employer] message on Bennett Ordonez's chart regarding this [id number], please advi se. Caller is requesting information about: [facility] Billing Patient Access Instructions 1. Warm Transfer to the appropriate [employer] [facility] Billing line, using the [employer] [facility] DINKEY PRESS OPERATOR contact in the [employer] Phone Book. 2. Select Referred to [facility] Labs Resolve Reason and Click Close CRM. documented in this encounter Plan of Treatment Upcoming Encounters Date Type Department Care Team (Late st Contact Info) Description 12/09/2025 2:30 PM CDT Office Visit [address] [place] [address] Aston Walker MD [address] [place] [address]. 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 [address] [place] [address] PCP - General Internal Medicine 04/01/20 documented as of this encounter
--- OUTSIDE RECORDS SUMMARY | 2025-07-19 13:58 | XMS_ITS | Encounter Summary ---
Author Organization [facility] Address [address] [place] [address] Care Team Providers Care Preparation Room Worker Name Role Phone Aston Walker MD Primary Care Provider Encounter Details Date Type Department Care Team (Latest Contact Info) Description 01/28/2007 Outpatient Historical [facility] [address] [place] [address] Josr Velazquez MD [address] [facility] [address] [address] Routine General Medical Examination at a Health Care Facility (Primary Dx) Social History Tobacco Use Types Packs/Day Years Used Date Smoking Tobacco: Never Assessed Comments Unknown Sex and Gender Information Value Date Recorded Sex Assigned at Not on file 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 [place] [address] 05/27/2088 Abstract [facility] [address] [facility] [address] [place] [address] Josr Velazquez MD [address] [facility] [address] [phone] documented as of this encounter Procedures Procedure [...] MD URINE ORDERABLES Edited Performing Organization Address [facility] Phone Number INTERFACE SYSTEM Refer to clinic/hospital department * URINALYSIS WITH REFLEX CULTURE (01/28/2007 7:49 PM CDT) Pathologist [facility] URINE CULTURE ORDER Culture ordered INTERFACE SYSTEM [...] MD URINE ORDERABLES Edited Performing Organization Address [facility] Phone Number INTERFACE SYSTEM Refer to clinic/hospital [...] MD HEMATOLOGY ORDERABLES Edited Performing Organization Address [facility] Phone Number INTERFACE SYSTEM Refer to clinic/hospital [...] MD HEMATOLOGY ORDERABLES Edited Performing Organization Address [facility] Phone Number INTERFACE SYSTEM Refer to clinic/hospital department * TSH (01/28/2007 7:49 PM CDT) TSH 1.23 0.27 - 4.20 uU/mL INTERFACE SYSTEM 01/28/2007 7:49 PM CDT Josr Velazquez MD CHEMISTRY ORDERABLES Edited Performing Organization Address [facility] Phone Number INTERFACE SYSTEM Refer to clinic/hospital [...] and non- Americans is available on the [facility] Intranet at: [email or web address] Select: Lab Policies and Procedures Select: Reference [...] classifications for lipids are available on the [facility] Intranet at: [email or web address] Select: Lab Policies and Procedures Select: Reference [...] documented as of this encounter Care Teams Preparation Room Worker Relationship Specialty Start Date End Date Aston Walker MD [address] [place] [address]. [address] [place] [address] PCP - General Internal Medicine 04/01/20 documented as of this encounter
--- OUTSIDE RECORDS SUMMARY | 2025-07-19 13:58 | XMS_ITS | Encounter Summary ---
Author Organization [facility] Address [address] [place] [address] Care Team Providers Care Ambulatory Care Nurse Name Role Phone Aston Walker MD Primary Care Provider Reason for Visit * Reason Comments Patient Communication Encounter Details Date Type Department Care Team (Late st Contact Info) Description 04/13/2025 Telephone [facility] Primary Care - [address] [place] [address] Aston Walker MD [address] [place] [address]. [address] [place] [address] Patient Communication Social History Tobacco [...] week 08/04/2020 How often do you attend [facility] or judaism services? 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 * Telephone Encounter - Adilene Pleitez - 04/13/2025 3:12 PM CDT Copied from [facility] #[id number]. Topic: CPA Information Request >> Apr 13, 2025 3:11 PM Adilene Trivedi wrote: Caller is returning phone call from clinic. Caller Name: Bennett ( on phi) Patient/Caregiver Callback Number: Telephone Information: Patient Has Additional Questions Are the credentials of the caregiver who talked to the patient client services coordinator? Yes Call Notes: Patient/Caller requires a call back to discuss the TB Test documented in this encounter Plan of Treatment Upcoming Encounters Date Type Department Care Team (Late st Contact Info) Description 12/09/2025 2:30 PM CDT Office Visit [address] [place] [address] Aston Walker MD [address] [place] [address] [address] [place] [address] 05/27/2088 Abstract [facility] [address] [facility] [address] [place] [address] Josr Velazquez MD [address] 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 [place] [address] PCP - General Internal Medicine 04/01/20 documented as of this encounter
--- OUTSIDE RECORDS SUMMARY | 2025-07-19 13:58 | XMS_ITS | Encounter Summary ---
Author Organization [facility] Address [address] [place] [address] Care Team Providers Care Batch And Furnace Manager Name Role Phone Aston Walker MD Primary Care Provider Encounter Details Date Type Department Care Team (Late st Contact Info) Description 11/06/2006 Outpatient Historical [facility] 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 [place] [address] PCP - General Internal Medicine 04/01/20 documented as of this encounter
--- OUTSIDE RECORDS SUMMARY | 2025-07-19 13:58 | XMS_ITS | Encounter Summary ---
Author Organization [facility] Address [address] [place] [address] Care Team Providers Care Terrazzo Grinder Name Role Phone Aston Walker MD Primary Care Provider Encounter Details Date Type Department Care Team (Late st Contact Info) Description 07/04/2005 Outpatient Historical [facility] 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 [place] [address] PCP - General Internal Medicine 04/01/20 documented as of this encounter
--- OUTSIDE RECORDS SUMMARY | 2025-07-19 13:58 | XMS_ITS | Encounter Summary ---
Author Organization [facility] Address [address] [place] [address] Care Team Providers Care Tankroom Tender Name Role Phone Aston Walker MD Primary Care Provider Reason for Visit * Reason Comments Question Encounter Details Date Type Department Care Team (Late st Contact Info) Description 02/01/2025 Telephone [facility] Primary Care - [address] [place] [address] Aston Walker MD [address] [place] [address]. [address] [place] [address] Question Social History Tobacco Use [...] How often do you attend [facility] or restorationism services? 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 I sent them a MMM this AM. I agree with them * Telephone Encounter - Chantell Duran - 02/01/2025 10:46 AM CDT Copied from [facility] #[id number]. Topic: Patient or Caregiver Communication Request >> Feb 01, 2025 10:44 AM Chantell Reza wrote: Patient or Caregiver requesting that a message be sent to Care Team Caller: nessa (on phi) Patient/Caregiver Callback Number: [phone] Call Notes: would like to know would pcp be ok with pt going to see and comfortable with having surgery with this DR documented in this encounter Plan of Treatment Upcoming Encounters Date Type Department Care Team (Late st Contact Info) Description 12/09/2025 2:30 PM CDT Office Visit [facility] [address] [facility] [address] [place] [address] Aston Walker MD [address] [facility] [place] [address] 05/27/2088 Abstract 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 [place] [address] PCP - General Internal Medicine 04/01/20 documented as of this encounter
--- OUTSIDE RECORDS SUMMARY | 2025-07-19 13:58 | XMS_ITS | Encounter Summary ---
Author Organization [facility] Address [address] [place] [address] Care Team Providers Care Aviation Engineer Name Role Phone Aston Walker MD Primary Care Provider Reason for Visit * Reason Comments Provider Call Encounter Details Date Type Department Care Team (Late st Contact Info) Description 12/01/2024 Telephone [facility] Primary Care - [address] [place] [address] Aston Walker MD [address] [place] [address]. [address] [place] [address] Provider Call Social History Tobacco [...] week 08/04/2020 How often do you attend [facility] or caodaism services? 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 Topic: [id number] Call >> December 01, 2024 3:29 PM Urszula Morales wrote: Caller is requesting to speak with Clinical Care Team. Caller Name: Vandana Kirby Callback Number: [phone] secure Clinician Type: Home Health Co-worker Call Notes: requesting for PCP to follow for home health, please advise Is this addressing an immediate patient care need? No documented in this encounter Plan of Treatment Upcoming Encounters Date Type Department Care Team (Late st Contact Info) Description 12/09/2025 2:30 PM CDT Office Visit [address] [place] [address] Aston Walker MD [address] [place] [address]. [address] [place] [address] 05/27/2088 Abstract 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 [place] [address] PCP - General Internal Medicine 04/01/20 documented as of this encounter
--- OUTSIDE RECORDS SUMMARY | 2025-07-19 13:58 | XMS_ITS | Encounter Summary ---
Author Organization [facility] Address [address] [place] [address] Care Team Providers Care Infectious Disease Physician Name Role Phone Aston Walker MD Primary Care Provider Encounter Details Date Type Department Care Team (Latest Contact Info) Description 02/10/2008 Outpatient Historical [facility], [address] Josr Velazquez MD [address] [facility] [address] [address] Essential Hypertension, Benign Social History Tobacco Use Types Packs/Day Years Used Date Smoking Tobacco: Never Alcohol Use Standard Drinks/Week Comments No 0 (1 standard drink = 0.6 oz pur e alcohol) Comments No Sex and Gender Information Value Date Recorded Sex Assigned at Not on file 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 [place] [address] 05/27/2088 Abstract [facility] [address] [place] [id number] Josr Velazquez MD [address] [facility] [address] 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 [place] [address] PCP - General Internal Medicine 04/01/20 documented as of this encounter
--- NOTE | 2025-07-19 15:07 | P.HP_ITS ---
H&P: HPI History of Present Illness Date/Time: 07/19/25 15:07 Chief Complaint: Shortness of breath Narrative: 89-year-old female past medical history of dementia, hyperlipidemia, hypertension presents the hospital with shortness of breath and cough. Patient lives at assisted living [place] was called today because respiratory symptoms with a dry cough for 3 or 4 days. states that he cares for the patient at their assisted living. He states that his that his has activity intolerance which is new and a cough. states that she has not complained of anything else. HPI is limited due to patient's dementia. Workup in the ED is unremarkable except for a positive COVID. Chest x-ray shows left basilar atelectasis and likely pneumonitis, CTA shows tiny thin loculated pleural effusion on the left side. Review of Systems Review of Systems: 12 systems were reviewed and are negativ e except for as per HPI. [facility] Past Medical History Medical History (Updated 07/19/25 @ 18:07 by Suzan Arcos, VARGHESE) Hypertension Hyperlipidemia Social History Social History Smoking status: Never smoker Alcohol intake: never Substance use: never Substance use type: does not use Lack of Transportation: No Lack of Food: Never True Current Housing: I Have Housing Concerned About Future Housing: No Difficulty Paying Gas/Electric Bills: No Difficulty Paying for Meds: No Currently Unemployed: No Education: Associate Degree Difficulty w/ Childcare or Family Care: No Spiritual care concerns: No Meds Home Medications and Allergies Home Medications ?Medication ?Instructions ?Recorded ?Confirmed ?Type amlodipine 5 mg-benazepril 20 mg 1 cap PO DAILY 07/19/25 History capsule atorvastatin 20 mg tablet 20 mg PO QPM 07/19/25 History Allergies Allergy/AdvReac Type Severity Reaction Status Date / Time Penicillins Allergy Unknown Unknown Verified 07/19/25 16:39 Vital Signs Vital Signs - 24 hr 07/19/25 11:05 07/19/25 11:31 07/19/25 11:34 Temperature 98.4 F Pulse Rate 86 77 Respiratory Rate 15 16 Blood Pressure 139/95 H 150/83 H Pulse Oximetry 94 95 95 Oxygen Delivery Room Air Room Air Exam Narrative: General: well appearing, appears stated age. HEENT: normocephalic, atraumatic. Mucous membranes moist. EOMI, PERRLA, bilateral sclera anicteric, no conjunctival injection. Neck supple without JVD, lymphadenopathy, or bruit. Respiratory: clear bilaterally. No rales/rhonic/wheezes. Cough Cardiovascular: Regular rate and rhythm, normal S1-S2. No murmurs, rubs, or clicks. PMI is nondisplaced, capillary refill less than 3 second. Abdomen: Soft, round, no pulsatile masses, nondistended and nontender. No rebound, no guarding. Bowel sounds present to all four quadrants. No high pitch or tinkling sounds, resonant to percussion. Extremities: No cyanosis, clubbing, or edema present. Pulses are palpable 2/2. Active ROM to all four extremities. Neuro: Alert and orientated x 1. PERRLA. Cranial nerves 2-12 intact without focal deficit. Skin: Warm, dry, and intact, without rash, erythema, or lesion. Psych: pleasant, cooperative, normal speech, normal affect, no hallucinations, no dysarthia Results Labs Labs: Short CBC 07/19/25 Range/Units 11:54 WBC 9.2 (4.5-10.0) K/mm3 Hgb 13.5 (12.0-15.0) g/dL Hct 40.7 (37.0-47.0) % Plt Count 279 (150-375) k/mm3 BMP 07/19/25 11:54 Sodium 137 Potassium 4.1 Chloride 106 Carbon Dioxide 24 BUN 16 Creatinine 0.75 Glucose 107 Calcium 9.9 Liver Function 07/19/25 Range/Units 11:54 Total Bilirubin 0.7 (0.2-1.3) mg/dL AST 40 H (14-36) U/L ALT 32 (6-35) U/L Alkaline Phosphatase 129 H (38-126) U/L Albumin 4.1 (3.5-5.1) g/dL Attestation: I personally reviewed all lab results Imaging Chest x-ray: Attestation: I personally reviewed this imaging study Radiologist's impression: IMPRESSION: 1. Left basilar atelectasis and/or scarring. Pneumonitis not excluded. CT scan - chest: Attestation: I personally reviewed this imaging study Radiologist's impression: IMPRESSION: 1. No PE. 2. Tiny thin loculated pleural effusion left side. Quality VTE Prophylaxis VTE prophylaxis: mechanical ordered and pharmacologic ordered Assessment and Plan Assessment and plan (1) COVID-19: Code(s): U07.1 - Status: Acute Assessment and Plan: Hypoxia with activity PT OT eval Walking oxygen study Steroids and remdesivir on hold at this time (2) Acute hypoxic respiratory failure: Code(s): J96.01 - Acute respiratory failure with hypoxia Status: Acute Assessment and Plan: Secondary to above Incentive spirometer (3) Pleural effusion: Code(s): J90 - Pleural effusion, not elsewhere classified Status: Acute Assessment and Plan: Tiny thin loculated pleural effusion left side. Does not appear be large enough to drain Should resolve on its own (4) Hypertension: Code(s): I10 - Essential (primary) hypertension Status: Acute Assessment and Plan: Continue Norvasc and lisinopril (5) Hyperlipidemia: Code(s): E78.5 - Hyperlipidemia, unspecified Status: Acute Assessment and Plan: Continue statin Time Spent with Patient Time with patient: less than 45 minutes Hospitalist MIPS Advance Care Plan I have confirmed that the patient's Advanced Care Plan is present, code status is documented, or surrogate decision maker is listed in patient medical record.: Yes Medication Reconciliation I have utilized all available resources to obtain, update and review the patients current medications (includes all prescriptions, OTC, herbals, cannabis, and nutritional supplements).: Yes
--- NOTE | 2025-07-19 15:47 | WPCEDHO ---
ED Hand Off Checklist All vitals saved:y IV Site documented:y All med administrations documented:y Triage Note Triage Note pt to ED from [place] via [facility] 07/19/25 11:05 [facility] for c/o cough and URI for 3 days. EMS also reports generalized weakness. HX HTN, GERD, CKD pt is A&OX3 Allergies Penicillins Allergy (Unknown, Verified 07/19/25 11:16) Unknown Administered/Completed Medications Discontinued Medications Sodium Chloride (Normal Saline Iv) 1,000 mls @ 999 mls/hr IV CONT .Q1H1M STA Stop: 07/19/25 13:48 Last Infusion: 07/19/25 14:41 Dose: Infused Documented By: Admin: 07/19/25 13:23 Dose: 999 mls/hr Documented By: AIDAN Interventions/Assessments IV / Saline Lock, Insert Start: 07/19/25 10:54 Freq: Status: Active Protocol: Document 07/19/25 11:55 AZG (Rec: 07/19/25 11:55 AZG [id number]) IV Assessment Peripheral Access Right Forearm IV Catheter Access Initiated IV Insertion Date 07/19/25 IV Insertion Time 11:55 IV Site Assessment WNL IV Care and WNL Maintenance PA: HEENT Assessment Start: 07/19/25 10:54 Freq: Status: Active Protocol: Document 07/19/25 11:33 AZG (Rec: 07/19/25 11:34 AZG [id number]) Head and Neck Assessment Head Symptoms None Neck Symptoms None Neck Movement No Limitations Bilateral Eye Symptoms/ Redness Appearance Visual Difficulty None Eye Drainage Clear Description Lower Eyelid Normal Appearance Upper Eyelid Normal Appearance Conjunctiva Clear/Gobles Appearance Sclera Appearance Clear/White Eye Movement Unimpaired Eye Covering Applied No Bilateral Nasal Symptoms Congestion,Discharge Nasal Discharge Clear Mouth Symptoms/ None/Normal Appearance Lip Description Normal for Patient Teeth Description Intact Orthodontic/Dental None Assistive Devices Tongue Description Normal Throat Symptoms/ None/Normal Appearance PA: Respiratory Assessment Start: 07/19/25 10:54 Freq: Status: Active Protocol: Document 07/19/25 11:31 AZG (Rec: 07/19/25 11:33 AZG [id number]) Respiratory Assessment Symptoms Congestion,Cough,Wheezing Effort Normal Pattern Regular Depth Normal Chest Expansion Symmetrical Throughout Phase Expiratory Lung Sounds Wheezes Cough Description Productive Cough Frequency Intermittent Sputum Amount None Oxygen Delivery Oxygen Delivery Room Air Pulse Oximetry (90- 95 100) Last Vital Signs Temperature 98.4 F 07/19/25 11:05 Pulse Rate 86 07/19/25 15:37 Respiratory Rate 1 L 07/19/25 15:37 Pulse Oximetry 96 07/19/25 15:37 Blood Pressure 155/89 H 07/19/25 15:37 Blood Pressure Mean 111 07/19/25 15:37 Blood Pressure Position Sitting 07/19/25 15:37 Oxygen Delivery Room Air 07/19/25 11:31 Weight 59.8 kg 07/19/25 11:05 Last Result - Abnormals Only Neut % (Auto) 76.6 % (45.5-73.1) H 07/19/25 11:54 Lymph % (Auto) 12.1 % (18.3-44.2) L 07/19/25 11:54 [place] % (Auto) 10.1 % (2.6-8.5) H 07/19/25 11:54 [place] # (Auto) 0.9 K/mm3 (0.1-0.6) H 07/19/25 11:54 Absolute Neuts (auto) 7.0 K/mm3 (1.3-6.7) H 07/19/25 11:54 AST 40 U/L (14-36) H 07/19/25 11:54 Alkaline Phosphatase 129 U/L (38-126) H 07/19/25 11:54 SARS-CoV-2 RNA (RT-PCR) Positive (Negative) A 07/19/25 11:24
--- NOTE | 2025-07-19 16:21 | ADMGEN ---
This patient, Paulette Clarke, was admitted to Medical Room 254-01. Patient/family oriented to hospital policies and general routines including ID bracelet, bed and alarms, visiting hours, pain management, procedures, bathroom and other care routines, personal items, smoking policy, room service/diet, and visiting hours. Information on how to activate the Rapid Response Team has been discussed. Patient/Family are encouraged to report perceived risks to care and to ask questions if they do not understand what they are told or what they should do.
[2025-07-20 04:55] VITALS: BP 141/78; PULSE 84; RESP 18; TEMP 37.2; O2SAT 91
[2025-07-20 05:14] LABS: Hematocrit 39.6 % (37.0-47.0); Hemoglobin 12.8 g/dL (12.0-15.0); Immature Granulocyte Percent A 0.4 % (0-0.5); Lymphocytes Absolute Auto 1.11 K/mm3 (0.9-3.2); Mean Corpuscular HGB Conc 32.3 g/dl (32-36); Mean Corpuscular Hemoglobin 30.0 pg (26-34); Mean Corpuscular Volume 92.7 fl (80-100); Nucleated Red Blood Cells Absolute Auto 0.000 K/mm3 (0.0-0.012); Nucleated Red Blood Cells Perc 0.0 % (0.0-0.2); Platelet Count Result 267 k/mm3 (150-375); Red Blood Count 4.27 M/mm3 (4.2-5.4); White Blood Count 8.3 K/mm3 (4.5-10.0)
[2025-07-20 05:37] LABS: Anion Gap 7 mmol/L (4-12); Blood Urea Nitrogen 14 mg/dL (7-17); Calcium 9.5 mg/dL (8.4-10.2); Carbon Dioxide 24 mmol/L (22-30); Chloride 107 mmol/L (98-107); Estimated CRCL calculation 41 ml/min; Estimated Glomerular Filt Rate > 60; Glucose 92 mg/dL (65-110); Potassium 3.2 mmol/L (3.4-5.0); Sodium 138 mmol/L (137-145)
--- NOTE | 2025-07-20 09:10 | PM.IMPN2 ---
Assessment and Plan Assessment and Plan (1) COVID-19: Code(s): U07.1 - COVID-19 Status: Acute Assessment and Plan: Hypoxia with activity, 91% RA. Stable at rest. PT OT eval pending, hopeful to go back to assisted living tomorrow if stable Remdesivir not given, pt not keeping IV in (2) Acute hypoxic respiratory failure: Code(s): J96.01 - Acute respiratory failure with hypoxia Status: Acute Assessment and Plan: Secondary to above Incentive spirometer (3) Pleural effusion: Code(s): J90 - Pleural effusion, not elsewhere classified Status: Acute Assessment and Plan: Tiny thin loculated pleural effusion left side. Does not appear be large enough to drain Pt denies any SOB or CP. Keeping for observation overnight, f/u with PCP (4) Hypertension: Code(s): I10 - Essential (primary) hypertension Status: Acute Assessment and Plan: Continue Norvasc and lisinopril Plan Pending PT/OT, reassess K (was mildly low, oral supp given, eating acceptable), likely discharge tomorrow Time Spent With Patient Time with patient: 25 - 35 minutes Subjective Date/time seen: 07/20/25 1018 Interval history: Pt sitting up in bed with pt at the bedside. Pt and live in an apartment in an assisted [facility], he thinks this is where she got COVID. Per pt, she does not feel poorly. Per , pt initially came to the ED for cough and because the nurse at their facility told them to come here. He cares for the pt at home. Pt has dementia, no change in orientation status. He reports that her cough has gotten better. Review of Systems Review of Systems: 12 systems were reviewed and are negative except for as per HPI. Exam Narrative: General: well appearing, appears stated age. HEENT: normocephalic, atraumatic. Mucous membranes moist. EOMI, PERRLA, bilateral sclera anicteric, no conjunctival injection. Neck supple without JVD, lymphadenopathy, or bruit. Respiratory: clear bilaterally. No rales/rhonic/wheezes. No cough during exam. Cardiovascular: Regular rate and rhythm, normal S1-S2. No murmurs, rubs, or clicks. PMI is nondisplaced, capillary refill less than 3 second. Abdomen: Soft, round, no pulsatile masses, nondistended and nontender. No rebound, no guarding. Bowel sounds present to all four quadrants. No high pitch or tinkling sounds, resonant to percussion. Extremities: No cyanosis, clubbing, or edema present. Pulses are palpable 2/2. Active ROM to all four extremities. Neuro: Alert and orientated x 1. PERRLA. Cranial nerves 2-12 intact without focal deficit. Skin: Warm, dry, and intact, without rash, erythema, or lesion. Psych: pleasant, cooperative, normal speech, normal affect, no hallucinations, no dysarthia Objective Data Vital Signs Vital Signs: Vital Signs - 24 hr 07/19/25 11:05 07/19/25 11:31 07/19/25 11:34 Temperature 98.4 F Pulse Rate 86 77 Respiratory Rate 15 16 Blood Pressure 139/95 H 150/83 H Pulse Oximetry 94 95 95 Oxygen Delivery Room Air Room Air 07/19/25 15:37 07/19/25 16:51 07/19/25 17:21 Temperature 97.4 F L Pulse Rate 86 77 Respiratory Rate 1 L 18 Blood Pressure 155/89 H Pulse Oximetry 96 93 93 Oxygen Delivery Room Air 07/19/25 19:44 07/20/25 04:55 Temperature 99.4 F 98.9 F Pulse Rate 84 84 Respiratory Rate 18 18 Blood Pressure 139/76 141/78 H Pulse Oximetry 91 91 Oxygen Delivery Intake/Output Intake/Output: Intake & Output 07/17/25 07/18/25 07/19/25 07/20/25 23:59 23:59 23:59 23:59 Intake Total 1080 0 Balance 1080 0 Meds/Results Medications: Active Medications Generic Name Dose Route Start Last Admin Trade Name Freq PRN Reason Stop Dose Admin Acetaminophen 650 mg 07/19/25 14:38 Acetaminophen 325 Mg Tablet PO Q4H PRN Mild Pain (1-3) or Fever Hydrocodone Bitart/Acetaminophen 1 tab 07/19/25 15:23 Hydrocodone/Acetaminophen (*Crx) 5-325 Mg Tablet PO Q4H PRN Moderate Pain (4-6) Amlodipine Besylate 5 mg 07/20/25 09:00 Amlodipine Besylate 5 Mg Tablet PO DAILY YONY Atorvastatin Calcium 20 mg 07/19/25 18:00 07/19/25 17:55 Atorvastatin 20 Mg Tablet PO Not Given QPM [facility] Docusate Sodium 100 mg 07/19/25 17:00 07/19/25 17:11 Docusate Sodium 100 Mg Capsule PO Not Given BID [facility] Enoxaparin Sodium 40 mg 07/20/25 09:00 Enoxaparin 40 Mg/0.4 Ml Syringe SUB-Q DAILY [facility] Lisinopril 20 mg 07/20/25 09:00 Lisinopril 20 Mg Tablet PO DAILY [facility] Ondansetron HCl 4 mg 07/19/25 14:38 Ondansetron Inj 4 Mg/2 Ml Vial IV PUSH Q4H PRN Nausea Radiology Results: ITS Impressions Chest X-Ray 07/19/25 12:38 IMPRESSION: 1. Left basilar atelectasis and/or scarring. Pneumonitis not excluded. Chest CTA 07/19/25 13:06 IMPRESSION: 1. No PE. 2. Tiny thin loculated pleural effusion left side. Labs Labs: Laboratory Results - last 24 hr 07/19/25 07/19/25 07/20/25 11:24 11:54 04:55 WBC 9.2 8.3 RBC 4.56 4.27 Hgb 13.5 12.8 Hct 40.7 39.6 MCV 89.3 92.7 MCH 29.6 30.0 MCHC 33.2 32.3 RDW 13.3 13.3 Plt Count 279 267 MPV 8.8 9.1 Immature Gran % (Auto) 0.3 0.4 Neut % (Auto) 76.6 H 70.6 Lymph % (Auto) 12.1 L 13.4 L [place] % (Auto) 10.1 H 12.7 H Eos % (Auto) 0.5 2.4 Baso % (Auto) 0.4 0.5 Lymph # (Auto) 1.11 1.11 [place] # (Auto) 0.9 H 1.1 H Eos # (Auto) 0.1 0.2 Baso # (Auto) 0.0 0.0 Abs Immat Gran (auto) 0.03 0.03 Absolute Neuts (auto) 7.0 H 5.9 Absolute Nucleated RBC 0.000 0.000 Nucleated RBC % 0.0 0.0 PT 13.5 INR 1.0 APTT 27.4 Sodium 137 138 Potassium 4.1 3.2 L Chloride 106 107 Carbon Dioxide 24 24 Anion Gap 7 7 BUN 16 14 Creatinine 0.75 0.66 L Estim Creat Clear Calc 36 41 Estimated GFR > 60 > 60 Glucose 107 92 Lactic Acid 1.0 Calcium 9.9 9.5 Total Bilirubin 0.7 AST 40 H ALT 32 Alkaline Phosphatase 129 H Total Protein 7.8 Albumin 4.1 Influenza A (RT-PCR) Negative Influenza B (RT-PCR) Negative RSV (RT-PCR) Negative SARS-CoV-2 RNA (RT-PCR) Positive A Quality VTE Prophylaxis VTE prophylaxis: mechanical ordered and pharmacologic ordered
[2025-07-20] MEDS: DOCUSATE SODIUM 100 MG CAPSULE PO (09:27)
[2025-07-20] MEDS: HYDROcodone/acetaminophen (*CRX) 5-325 MG TABLET 1 TAB PO (09:28)
[2025-07-20] MEDS: POTASSIUM CHLORIDE 20 MEQ ER TABLET 40 MEQ PO (11:42)
[2025-07-20 12:00] VITALS: PULSE 77; O2SAT 94
[2025-07-20 13:58] VITALS: BP 109/61; PULSE 69; RESP 14; TEMP 37; O2SAT 94
[2025-07-20] MEDS: ATORVASTATIN 20 MG TABLET PO (16:41)
[2025-07-20 20:29] VITALS: BP 132/74; PULSE 78; RESP 18; TEMP 36.8; O2SAT 94
[2025-07-21 05:05] VITALS: BP 139/69; PULSE 76; RESP 18; TEMP 37.1; O2SAT 90
[2025-07-21 05:15] LABS: Hematocrit 39.3 % (37.0-47.0); Hemoglobin 12.8 g/dL (12.0-15.0); Immature Granulocyte Percent A 0.1 % (0-0.5); Lymphocytes Absolute Auto 1.76 K/mm3 (0.9-3.2); Mean Corpuscular HGB Conc 32.6 g/dl (32-36); Mean Corpuscular Hemoglobin 29.4 pg (26-34); Mean Corpuscular Volume 90.3 fl (80-100); Nucleated Red Blood Cells Absolute Auto 0.000 K/mm3 (0.0-0.012); Nucleated Red Blood Cells Perc 0.0 % (0.0-0.2); Platelet Count Result 271 k/mm3 (150-375); Red Blood Count 4.35 M/mm3 (4.2-5.4); White Blood Count 7.1 K/mm3 (4.5-10.0)
[2025-07-21 05:40] LABS: Alanine Aminotransferase 23 U/L (6-35); Albumin Level 3.3 g/dL (3.5-5.1); Alkaline Phosphatase 108 U/L (38-126); Anion Gap 6 mmol/L (4-12); Aspartate Amino Transferase 35 U/L (14-36); Bilirubin,Total 0.6 mg/dL (0.2-1.3); Blood Urea Nitrogen 20 mg/dL (7-17); Calcium 9.1 mg/dL (8.4-10.2); Carbon Dioxide 20 mmol/L (22-30); Chloride 106 mmol/L (98-107); Estimated CRCL calculation 34 ml/min; Estimated Glomerular Filt Rate > 60; Glucose 90 mg/dL (65-110); Potassium 3.9 mmol/L (3.4-5.0); Sodium 132 mmol/L (137-145); Total Protein 6.5 g/dL (6.3-8.2)
[2025-07-21 09:25] VITALS: O2SAT 95
--- NOTE | 2025-07-21 11:16 | PM.DS ---
DS: Admitting Diagnosis Discharge Date 07/21/2025 Admitting Diagnosis COVID, hypoxia DS: Discharge Diagnosis Discharge Diagnosis (1) COVID-19: Code(s): U07.1 - COVID-19 Status: Acute Assessment and Plan: Hypoxia with activity, 91% RA. Stable at rest at 95% RA today. PT OT eval with recs for HH and outpt therapy Remdesivir not given, pt not keeping IV in (2) Acute hypoxic respiratory failure: Code(s): J96.01 - Acute respiratory failure with hypoxia Status: Acute Assessment and Plan: Secondary to above Incentive spirometer (3) Pleural effusion: Code(s): J90 - Pleural effusion, not elsewhere classified Status: Acute Assessment and Plan: Small thin loculated pleural effusion left side. Does not appear be large enough to drain Pt denies any SOB or CP. F/u with PCP. (4) Hypertension: Code(s): I10 - Essential (primary) hypertension Status: Acute Assessment and Plan: Continue Norvasc and lisinopril Plan Discharge today with continued COVID precautions and prompt f/u with PCP. DS: Summary Hospital Course Reason for hospitalization: COVID, hypoxia Hospital Course: The patient is an 89-year-old female with a history of hypertension, hyperlipidemia, and dementia who presented from assisted living with a 3?4 day history of dry cough and new activity intolerance. In the emergency department, she was found to be COVID-19 positive with imaging notable for left basilar atelectasis versus pneumonitis and a small, thin loculated left pleural effusion; CTA chest was negative for pulmonary embolism. While oxygenation was adequate at rest, she developed hypoxia with ambulation, prompting admission for further monitoring and supportive care. Laboratory evaluation was largely unremarkable without leukocytosis or significant metabolic derangements. She was managed conservatively with incentive spirometry, activity as tolerated, and close monitoring; steroids and remdesivir were held, and remdesivir was ultimately not administered due to inability to maintain IV access. PT/OT evaluated the patient and recommended home health services and outpatient therapy. Over the hospitalization, her respiratory status improved, with stable oxygen saturations at rest on room air and mild desaturation only with exertion. She remained hemodynamically stable, denied chest pain or shortness of breath at rest, and showed no progression of the pleural effusion. She was deemed clinically improved and stable for discharge back to assisted living with continued COVID precautions and close outpatient follow-up. Status at Discharge Overall status at discharge: patient is progressing back to baseline Time Spent with Patient Time attestation: Total time spent providing and/or coordinating discharge services: Time spent: Greater than 30 minutes Exam Narrative: General: well appearing, appears stated age. HEENT: normocephalic, atraumatic. Mucous membranes moist. EOMI, PERRLA, bilateral sclera anicteric, no conjunctival injection. Neck supple without JVD, lymphadenopathy, or bruit. Respiratory: clear bilaterally. No rales/rhonic/wheezes. No cough during exam. Cardiovascular: Regular rate and rhythm, normal S1-S2. No murmurs, rubs, or clicks. PMI is nondisplaced, capillary refill less than 3 second. Abdomen: Soft, round, no pulsatile masses, nondistended and nontender. No rebound, no guarding. Bowel sounds present to all four quadrants. No high pitch or tinkling sounds, resonant to percussion. Extremities: No cyanosis, clubbing, or edema present. Pulses are palpable 2/2. Active ROM to all four extremities. Neuro: Alert and orientated x 1. PERRLA. Cranial nerves 2-12 intact without focal deficit. Skin: Warm, dry, and intact, without rash, erythema, or lesion. Psych: pleasant, cooperative, normal speech, normal affect, no hallucinations, no dysarthia DS: Data Data Completed and Pending Completed studies during hospitalization: Labs, urine, PCR, imaging Labs on day of discharge: Labs from last 24 hours 07/21/25 04:57 WBC 7.1 RBC 4.35 Hgb 12.8 Hct 39.3 MCV 90.3 MCH 29.4 MCHC 32.6 RDW 13.3 Plt Count 271 MPV 9.3 Immature Gran % (Auto) 0.1 Neut % (Auto) 54.4 Lymph % (Auto) 24.9 [place] % (Auto) 12.9 H Eos % (Auto) 7.3 H Baso % (Auto) 0.4 Lymph # (Auto) 1.76 [place] # (Auto) 0.9 H Eos # (Auto) 0.5 H Baso # (Auto) 0.0 Abs Immat Gran (auto) 0.01 Absolute Neuts (auto) 3.9 Absolute Nucleated RBC 0.000 Nucleated RBC % 0.0 Sodium 132 L Potassium 3.9 Chloride 106 Carbon Dioxide 20 L Anion Gap 6 BUN 20 H Creatinine 0.81 Estim Creat Clear Calc 34 Estimated GFR > 60 Glucose 90 Calcium 9.1 Total Bilirubin 0.6 AST 35 ALT 23 Alkaline Phosphatase 108 Total Protein 6.5 Albumin 3.3 L Discharge Plan Discharge Attending physician on discharge: Sylwia Su Consulting providers: Adriana Bales Discharging Clinician: Adriana Bales Anticipated Discharge Date/Time: 07/21/25 13:00 Patient Disposition: [facility] Activity: as tolerated Diet: heart healthy Discharge Instructions: Continue isolation for a total of 10 days since symptom onset due to your positive COVID test. Continue to wear a mask if you go out in public. Continue to check your blood pressure and blood sugar at home if applicable. Keep your scheduled appts with your primary care provider and any specialist that you may see. Return to the emergency department if you develop sudden shortness of breath, chest pain, a fever of greater than 101.5, or nausea, vomiting, abd pain, or diarrhea that does not go away. Follow-up with your primary care provider within 1-2 weeks, they will want to be updated on your inpatient stay in the hospital. Thank you for choosing [facility] for your healthcare needs. Patient Instructions: COVID-19 (Coronavirus Disease 2019) (GEN) Patient Language: Micronesian Stand Alone Forms: General Discharge Information Follow-up/Referrals: Aston Walker [Other] - 2 Weeks Discharge Medications: Continued amlodipine-benazepril 5-20 mg capsule 1 cap PO DAILY atorvastatin 20 mg tablet 20 mg PO QPM Date of admission: 07/20/25 10:15 Primary Care Provider: Aston Walker Admitting Provider: Dwight Boyle Attending physician on admission: Dwight Boyle Condition: Stable Quality VTE Prophylaxis VTE prophylaxis: mechanical ordered and pharmacologic ordered Hospitalist MIPS Heart Failure (Exclusion) Patient has history of Heart Transplant or Left Ventricular Assistive Device?: No IF YES, STOP HERE Heart Failure (Qualifier) Patient has current or prior documentation of LVEF less than or equal to 40%, or mod/servere depressed LVSF?: No IF NO, STOP HERE
== END 2025-07-21 12:50 | DRG 177 ==
LOC: ANHED 15:05 → ANH3MEDSUR 15:53 → ANH2MED 15:55
PROVIDERS: Emergency Medicine; Nurse Practitioner Gerontology; Admitting Provider Internal Medicine; Emergency Provider Physician Assistant; Visit Provider Internal Medicine
DX: U07.1 COVID-19 (principal); J96.01 Acute respiratory failure with hypoxia; J90 Pleural effusion, not elsewhere classified; E78.5 Hyperlipidemia, unspecified; F03.90 Unspecified dementia, unspecified severity, without behavioral disturbance, psychotic disturbance, mood disturbance, and anxiety; I10 Essential (primary) hypertension; Z88.0 Allergy status to penicillin
CPT/HCPCS: 36415; 71046; 71275; 80048; 80053; 83605; 85025; 85610; 85730; 87637; 93005; 96360; 97162; 97166; 97535; 99285; A9270; G0378; J7030; Q9967